=== PATIENT | male | born 1950 | race Caucasian/White ===

== ENCOUNTER 2021-03-04 05:35 | Day surgery (SDC) | payer MEDICARE, BC ==
[2021-02-25 11:46] LABS: PRE OP HEMOGLOBIN 13.8 g/dL (14.0-17.9)
[2021-02-25 11:48] LABS: MEAN CORPUSCULAR HGB CONC 33.2 g/dL (33.0-36.5); MEAN CORPUSCULAR VOLUME 90.4 FL (78-98); PRE OP HEMATOCRIT 41.5 % (42.0-52.0); PRE OP PLATELET COUNT 268 X10'3 (140-440); RED BLOOD COUNT 4.59 X10'6 (4.70-6.10); RED CELL DISTRIBUTION WIDTH 13.4 % (11.5-14.5)
[2021-02-25 11:52] LABS: CLARITY,URINE CLEAR (Clear); COLOR,URINE YELLOW (Yellow); GLUCOSE, URINE NEGATIVE (Neg); KETONES,URINE NEGATIVE (Neg); LEUKOCYTE ESTERASE ,URINE NEGATIVE (Neg); NITRITES, URINE NEGATIVE (Neg); OCCULT BLOOD,URINE NEGATIVE (Neg); PROTEIN,URINE NEGATIVE (Neg); UA COLLECTION TYPE CLN CATCH MIDSTREAM; UROBILINOGEN,URINE 0.2 E.U/dL (0.2-1.0)
[2021-02-25 12:12] LABS: ALBUMIN 4.1 G/DL (3.4-5.0); ALBUMIN/GLOBULIN RATIO 1.1 (1.1-1.5); ALKALINE PHOSPHATASE 52 IU/L (46-116); BLOOD UREA NITROGEN 19 MG/DL (7-18); BUN/CREATININE RATIO 21.3 (5.4-32.0); CALCIUM 9.5 MG/DL (8.5-10.1); CHLORIDE 102 MMOL/L (99-107); CREATININE 0.89 MG/DL (0.60-1.10); PRE OP ALT 39 U/L (30-65); PRE OP ANION GAP 4 (8-16); PRE OP AST 24 U/L (10-37); PRE OP BILIRUB, TOTAL 0.4 MG/DL (0.0-1.0); PRE OP GLUCOSE 101 MG/DL (70-104); PRE OP POTASSIUM 4.3 MMOL/L (3.4-5.1); PRE OP SODIUM 137 MMOL/L (135-145); TOTAL CARBON DIOXIDE 31.2 MMOL/L (24-32); TOTAL PROTEIN 7.8 G/DL (6.4-8.2); eGFR 85 ML/MIN
[2021-02-25 12:22] LABS: TOTAL CELLS COUNTED 100
[2021-02-25 12:23] LABS: PLATELET ESTIMATE NORMAL
[~2021-03-04] VITALS: Ht 188 cm; Wt 114.4 kg
[2021-03-04] VITALS (11 sets, daily range): BP systolic 101–120; BP diastolic 52–68
[~2021-03-04 05:35] MED LIST: ASPI-611 PO; CARV25TA3 PO; DOCUMENT DATE & TIME OF BETA-BLOCKER PO ONE; EZET10TA48 PO; GEMF600T89 PO; HYDR12.55 PO; LISI20TA28 PO; OMEG-133 PO; ROSU20TA31 PO; SPIR25TA5 PO; UBID50TA3 PO; ceFAZolin 2gm in dextrose, iso 50 ML IV ONE; famotidine 20mg tablet PO ONE; ringers solution, lacted 1,000 ML IV SCH
[2021-03-04] MEDS ORDERED: BUPIVAcaine/PF 2.5 mg/ml (0.25%) 30ml vial ONE (06:49)
[2021-03-04] MEDS ORDERED: bacitracin 15gm ointment TP ONE (06:49)
[2021-03-04] MEDS ORDERED: scopolamine 1mg/72 hr patch TD ONE (07:06)
[2021-03-04] MEDS ORDERED: fentaNYL/PF 50MCG/1 ML 2ML syringe ONE (07:09)
[2021-03-04] MEDS ORDERED: midazolam 1 mg/ML 2ml injection ONE (07:10)
[2021-03-04] MEDS ORDERED: LIDOcaine 2% (20mg/ml) 5ml vial ONE (07:25)
[2021-03-04] MEDS ORDERED: propofol inj 20 ML IV ONE (07:25)
[2021-03-04] MEDS ORDERED: ondansetron/PF 4mg/2ml inj ONE (07:25)
[2021-03-04] MEDS ORDERED: dexamethasone sod phosphate 4mg/ml inj. ONE (07:25)
[2021-03-04] MEDS ORDERED: labetalol 20mg/4ml (5mg/ml) syringe IV PRN (07:30)
[2021-03-04] MEDS ORDERED: morphine 2 MG/ML inj. syringe IV PRN (07:30)
[2021-03-04] MEDS ORDERED: meperidine/PF 25mg/ml syringe IV PRN ×3 (07:30)
[2021-03-04] MEDS ORDERED: ringers solution, lacted 1,000 ML IV SCH (07:30)
[2021-03-04] MEDS ORDERED: acetaminophen 1,000mg/100ml IV 100 ML IV PRN (07:30)
[2021-03-04] MEDS ORDERED: hydrALAZINE 20mg/ml inj. IV PRN (07:30)
[2021-03-04] MEDS ORDERED: ondansetron/PF 4mg/2ml inj IV PRN (07:30)
[2021-03-04] MEDS ORDERED: morphine 4 MG/ML inj SYRINge IV PRN (07:30)
[2021-03-04] MEDS ORDERED: proCHLORperazine 10 MG/2 ml inj IV PRN (07:30)
--- NOTE | 2021-03-04 08:27 | NUR ---
Received from OR via , accompanied by Anesthesiologist Dr. Minor and report given by Anesthesiolgist and OR nurse. Pt arrived drowsy on 10L 02 via mask. Pt right foot is wrapped and boot on. Dressing C/D/I. Capillary is 2 sec. 20G IV in left arm. VVS. Addendum: 03/04/21 at 0846 by Asia Kaur RN Amended: Links added.
--- NOTE | 2021-03-04 09:57 | NUR ---
ALL DISCHARGE CRITERIA HAS BEEN MET. VSS, DENIES PAIN OR NAUSEA. ABLE TO SAFELY AMBULATE AND TRANSFER SELF. IV TAKEN OUT WITHOUT COMPLICATIONS. ALL DISCHARGE INSTRUCTIONS COVERED WITH PATIENT AND ALL QUESTIONS ANSWERED, COPY GIVEN TO PATIENT. SCOPOLAMINE PATCH REMOVAL INSTRUCTIONS GIVEN TO PT ALONG WITH PRINT OUT. INSTRUCTED PT PER DR. VELIZ PT IS TO KEEP BOOT ON AT ALL TIMES EXCEPT WHEN LEG IS ELEVATED AND PT IS AWAKE, PT MUST SLEEP WITH BOOT AND WEAR IT WHILE WALKING. LIMITED WEIGHT BEARING ON RIGHT LEG. ICE PLACED BEHIND RIGHT KNEE FOR TRANSPORT HOME. PATIENT TAKEN OUT VIA WHEELCHAIR TO PERSONAL VEHICLE WITHOUT INCIDENT. Addendum: 03/04/21 at 1009 by Asia Kaur RN Amended: Links added.
== END 2021-03-04 09:57 | disposition home or self-care (01) ==
LOC: PAS 05:35
PROVIDERS: ATTEND Podiatrist Foot & Ankle Surgery
DX: M20.21 Hallux rigidus, right foot (principal); M19.071 Primary osteoarthritis, right ankle and foot; I25.10 Atherosclerotic heart disease of native coronary artery without angina pectoris; I10 Essential (primary) hypertension; Z20.822 Contact with and (suspected) exposure to COVID-19; Z79.82 Long term (current) use of aspirin; Z79.899 Other long term (current) drug therapy; Z98.890 Other specified postprocedural states; Z96.653 Presence of artificial knee joint, bilateral; Z95.1 Presence of aortocoronary bypass graft
CPT/HCPCS: 28750; 36415; 73620; 76000; 80053; 81003; 82948; 85025; A6223; C1713; J1100; J2001; J2250; J2405; J2704; J3010; J3490; U0003; U0005; Z7506; Z7508; Z7512; 85007; A4215; A4618; A6449; A7000; J7120

== ENCOUNTER 2021-05-29 09:27 | Emergency (ER) | payer MEDICARE, BC ==
[~2021-05-29] VITALS: Ht 188 cm; Wt 118.2 kg
[~2021-05-29 09:27] MED LIST changes: -DOCUMENT DATE & TIME OF BETA-BLOCKER PO ONE; -ceFAZolin 2gm in dextrose, iso 50 ML IV ONE; -famotidine 20mg tablet PO ONE; -ringers solution, lacted 1,000 ML IV SCH
[2021-05-29 09:30] VITALS: BP 150/78
[2021-05-29] MEDS ORDERED: mupirocin 2% ointment 22GM TP ONE (09:45)
[2021-05-29] MEDS ORDERED: TETanus/Pertussis (Acell)/Diphther VAC/PF (Tdap-Adult) 0.5ml syringe IMVAC ONE (09:45)
[2021-05-29] MEDS ORDERED: CefTRIAXone 1000mg IM Kit (w/lidocaine diluent) IM ONE (09:45)
[2021-05-29] MEDS ORDERED: AMOX-580 PO (09:48)
== END 2021-05-29 10:01 | disposition home or self-care (01) ==
LOC: ER 09:27
DX: S61.402A Unspecified open wound of left hand, initial encounter (principal); L03.114 Cellulitis of left upper limb; I11.0 Hypertensive heart disease with heart failure; I50.9 Heart failure, unspecified; Z79.82 Long term (current) use of aspirin; Z79.899 Other long term (current) drug therapy; Y93.89 Activity, other specified; Y92.89 Other specified places as the place of occurrence of the external cause; Y99.8 Other external cause status
CPT/HCPCS: 90471; 90715; 99283

== ENCOUNTER 2021-12-21 05:51 | Day surgery (SDC) | payer MEDICARE, BC ==
[2021-12-20 11:36] LABS: BASOPHILS # (AUTO) 0.1 X10'3 (0-0.2); BASOPHILS % (AUTO) 1.4 % (0-1); EOSINOPHILS # (AUTO) 0.4 X10'3 (0-0.9); EOSINOPHILS % (AUTO) 6.2 % (0-6); HEMATOCRIT 40.2 % (42.0-52.0); HEMOGLOBIN 13.3 g/dl (14.0-17.9); LYMPHOCYTES # (AUTO) 1.8 X10'3 (1.1-4.8); LYMPHOCYTES % (AUTO) 25.1 % (21-51); MEAN CORPUSCULAR HEMOGLOBIN 29.2 PG (27.0-31.0); MEAN CORPUSCULAR VOLUME 88.5 FL (78-98); MEAN PLATELET VOLUME 7.3 FL (7.4-10.4); MONOCYTES # (AUTO) 0.7 X10'3 (0-0.9); MONOCYTES % (AUTO) 10.3 % (2-12); PLATELET COUNT 246 X10'3 (140-440); RED BLOOD COUNT 4.54 X10'6 (4.70-6.10); RED CELL DISTRIBUTION WIDTH 13.8 % (11.5-14.5)
[2021-12-20 11:50] LABS: APTT 23 SECONDS (22-32)
[2021-12-20 11:59] LABS: ALBUMIN 4.3 G/DL (3.4-5.0); ANION GAP 10 (8-16); BLOOD UREA NITROGEN 27 MG/DL (7-18); CALCIUM 9.3 MG/DL (8.5-10.1); CHLORIDE 104 MMOL/L (99-107); CREATININE 1.04 MG/DL (0.60-1.10); GLUCOSE 98 MG/DL (70-104); POTASSIUM 4.4 MMOL/L (3.5-5.1); SODIUM 140 MMOL/L (135-145); TOTAL CARBON DIOXIDE 25.8 MMOL/L (24-32); eGFR 71 ML/MIN
[~2021-12-21] VITALS: Ht 188 cm; Wt 118.3 kg
[2021-12-21] VITALS (11 sets, daily range): BP systolic 111–145; BP diastolic 47–73
[2021-12-21] MEDS ORDERED: diphenhydrAMINE 25mg capsule PO PRN (06:20)
[2021-12-21] MEDS ORDERED: LORazepam 0.5 MG tablet PO PRN (06:20)
[2021-12-21] MEDS ORDERED: normal saline 1,000 ML IV SCH (06:20)
[2021-12-21] MEDS ORDERED: OMEG1CAP2 PO (06:31)
[2021-12-21] MEDS ORDERED: verapamil 2.5 mg/ml inj IV ONE (07:17)
[2021-12-21] MEDS ORDERED: nitroGLYCERIN-Tridil 50MG/D5W 250 ML IV ONE (07:17)
[2021-12-21] MEDS ORDERED: iohexol 350MG/ML 100ml bottle IV ONE ×4 (07:17→09:45)
[2021-12-21] MEDS ORDERED: midazolam 1 mg/ML 2ml injection ONE (07:17)
[2021-12-21] MEDS ORDERED: fentaNYL/PF 50MCG/1 ML 2ML syringe ONE (07:17)
[2021-12-21] MEDS ORDERED: heparin 1,000unit/ml 10ml vial 10 ML ONE (07:17)
[2021-12-21] MEDS ORDERED: LIDOcaine 1%/PF 5ML 10 MG/ML VIAL ONE (07:17)
[2021-12-21] MEDS ORDERED: heparin 25,000 UNIT/250ml bag 250 ML IV ONE (09:00)
[2021-12-21] MEDS ORDERED: heparin 1,000 UNITS/NS 500ml 500 ML ONE (09:45)
--- NOTE | 2021-12-21 10:30 | NUR ---
Pt back from wastewater analyst lab analyst. Fluids infusing as ordered. Heparin running, administered in wastewater analyst lab analyst. Pt A/Ox4. VS stable as charted. Vasc band in place, no s/s of bleeding or infection. Pt denies cp, denies sob.
[2021-12-21] MEDS ORDERED: normal saline 1000ml 1,000 ML IV SCH (10:55)
--- NOTE | 2021-12-21 11:12 | NUR ---
Pt complaint of non-radiating "chest pressure"/10. Denies pain, denies sob. Pt is not diaphoretic. VS stable as charted. Ordered EKG.
--- NOTE | 2021-12-21 12:04 | NUR ---
Heparin stopped per order.
--- NOTE | 2021-12-21 13:28 | NUR ---
Jina SHEARER at bedside.
--- NOTE | 2021-12-21 14:32 | NUR ---
Pt ambulated to restroom, voided. Denies cp, denies sob. Site stable.
--- NOTE | 2021-12-21 14:43 | NUR ---
Brought patient apple sauce and juice as requested.
--- NOTE | 2021-12-21 15:28 | NUR ---
arrived and is at bedside. Pt sitting up in bed. vs stable as charted.
== END 2021-12-21 15:55 | disposition home or self-care (01) ==
LOC: SSTAY O 05:51
PROVIDERS: ATTEND Internal Medicine Cardiovascular Disease
DX: R94.39 Abnormal result of other cardiovascular function study (principal); I25.810 Atherosclerosis of coronary artery bypass graft(s) without angina pectoris; E78.5 Hyperlipidemia, unspecified; I11.0 Hypertensive heart disease with heart failure; I50.22 Chronic systolic (congestive) heart failure; Z79.82 Long term (current) use of aspirin; Z79.899 Other long term (current) drug therapy; I42.9 Cardiomyopathy, unspecified; G47.33 Obstructive sleep apnea (adult) (pediatric); E66.9 Obesity, unspecified; Z68.32 Body mass index [BMI] 32.0-32.9, adult; Z98.890 Other specified postprocedural states
CPT/HCPCS: 36415; 76937; 80048; 85025; 85610; 85730; 92920; 93005; 93459; 99152; 99153; C1725; C1751; C1769; C1894; J1644; J2250; J3010; J3490; J7030; Q0163; Q9967; 93458; A4620; A5120; A6258; A6402

== ENCOUNTER 2022-01-09 06:54 | Day surgery (SDC) | payer MEDICARE, BC ==
[2022-01-06 12:45] LABS: BASOPHILS # (AUTO) 0.1 X10'3 (0-0.2); BASOPHILS % (AUTO) 1.4 % (0-1); EOSINOPHILS # (AUTO) 0.4 X10'3 (0-0.9); EOSINOPHILS % (AUTO) 5.8 % (0-6); HEMATOCRIT 38.3 % (42.0-52.0); HEMOGLOBIN 12.8 g/dl (14.0-17.9); LYMPHOCYTES # (AUTO) 1.6 X10'3 (1.1-4.8); LYMPHOCYTES % (AUTO) 22.3 % (21-51); MEAN CORPUSCULAR HEMOGLOBIN 29.6 PG (27.0-31.0); MEAN CORPUSCULAR HGB CONC 33.5 g/dL (33.0-36.5); MEAN CORPUSCULAR VOLUME 88.6 FL (78-98); MEAN PLATELET VOLUME 7.1 FL (7.4-10.4); MONOCYTES # (AUTO) 0.6 X10'3 (0-0.9); MONOCYTES % (AUTO) 8.7 % (2-12); NEUTROPHILS # (AUTO) 4.4 X10'3 (1.8-7.7); NEUTROPHILS % (AUTO) 61.8 % (42-75); PLATELET COUNT 291 X10'3 (140-440); RED BLOOD COUNT 4.32 X10'6 (4.70-6.10); RED CELL DISTRIBUTION WIDTH 14.5 % (11.5-14.5); WHITE BLOOD COUNT 7.1 X10'3 (4.5-11.0)
[2022-01-06 12:55] LABS: ALBUMIN 4.2 G/DL (3.4-5.0); ANION GAP 15 (8-16); BLOOD UREA NITROGEN 27 MG/DL (7-18); CALCIUM 9.4 MG/DL (8.5-10.1); CHLORIDE 106 MMOL/L (99-107); CREATININE 1.35 MG/DL (0.60-1.10); GLUCOSE 143 MG/DL (70-104); POTASSIUM 3.8 MMOL/L (3.5-5.1); SODIUM 144 MMOL/L (135-145); TOTAL CARBON DIOXIDE 23.5 MMOL/L (24-32); eGFR 52 ML/MIN
[2022-01-06 12:59] LABS: APTT 26 SECONDS (22-32)
[2022-01-09] VITALS (11 sets, daily range): BP systolic 115–138; BP diastolic 51–65
[~2022-01-09] VITALS: Ht 188 cm; Wt 118.8 kg
[~2022-01-09 06:54] MED LIST changes: -OMEG-133 PO; +OMEG1CAP2 PO
[2022-01-09] MEDS ORDERED: normal saline 1,000 ML IV SCH (07:20)
[2022-01-09] MEDS ORDERED: diphenhydrAMINE 25mg capsule PO PRN (07:20)
[2022-01-09] MEDS ORDERED: acetylcysteine 200 MG/ml 4ml vial PO PRN (07:20)
[2022-01-09] MEDS ORDERED: LORazepam 0.5 MG tablet PO PRN (07:20)
[2022-01-09] MEDS ORDERED: acetylcysteine 200 MG/ml 4ml vial PO SCH (07:20)
[2022-01-09] MEDS ORDERED: ROSU10TA28 PO (07:22)
[2022-01-09] MEDS ORDERED: ISOS60TA71 PO (07:22)
[2022-01-09] MEDS ORDERED: IOHEXOL 350 MG/ML INFUS..BTL 125ML IV ONE (09:45)
[2022-01-09] MEDS ORDERED: LIDOcaine 1%/PF 5ML 10 MG/ML VIAL ONE (09:45)
[2022-01-09] MEDS ORDERED: midazolam 1 mg/ML 2ml injection ONE (09:45)
[2022-01-09] MEDS ORDERED: verapamil 2.5 mg/ml inj IV ONE (09:45)
[2022-01-09] MEDS ORDERED: heparin 1,000unit/ml 10ml vial 10 ML ONE (09:45)
[2022-01-09] MEDS ORDERED: fentaNYL/PF 50MCG/1 ML 2ML syringe ONE (09:45)
[2022-01-09] MEDS ORDERED: nitroGLYCERIN-Tridil 50MG/D5W 250 ML IV ONE (09:46)
[2022-01-09] MEDS ORDERED: HEPARIN SOD,PORK IN 0.45% NACL 250 ML IV ONE (11:03)
[2022-01-09] MEDS ORDERED: iohexol 350MG/ML 100ml bottle IV ONE (11:32)
[2022-01-09] MEDS ORDERED: HYDROcodone/acetaminophen 10/325mg tab PO PRN ×2 (16:30)
[2022-01-09] MEDS ORDERED: cyclobenzaprine 10mg tablet PO PRN (16:30)
[2022-01-09] MEDS ORDERED: magnesium hydroxide 30ml (MOM) UD suspension PO PRN (16:30)
[2022-01-09] MEDS ORDERED: acetaminophen 325mg tablet PO PRN ×3 (16:30)
[2022-01-09] MEDS ORDERED: OXAZEpam 15mg capsule PO PRN (16:30)
== END 2022-01-09 17:15 | disposition home or self-care (01) ==
LOC: SSTAY O 06:54
PROVIDERS: ATTEND Internal Medicine Cardiovascular Disease
DX: I25.10 Atherosclerotic heart disease of native coronary artery without angina pectoris (principal); Z79.01 Long term (current) use of anticoagulants; I10 Essential (primary) hypertension; Z95.1 Presence of aortocoronary bypass graft; Z79.899 Other long term (current) drug therapy; Z98.890 Other specified postprocedural states
CPT/HCPCS: 36415; 76937; 80048; 85025; 85610; 85730; 92920; 93005; 99152; 99153; C1751; C1760; C1769; J1644; J2250; J3010; J3490; J7030; Q0163; Q9967; A4620; A6258; C1894; C9607

== ENCOUNTER 2022-01-31 14:37 | Day surgery (SDC) | payer MEDICARE, BC ==
[~2022-01-31] VITALS: Ht 188 cm; Wt 119.9 kg
[~2022-01-31 14:37] MED LIST changes: +ISOS60TA71 PO; +ROSU10TA28 PO; -ROSU20TA31 PO
[2022-01-31 15:36] VITALS: BP 157/98
[2022-01-31] MEDS ORDERED: ceFAZolin inj. 2,000 MG in dextrose 5%-water 100 ML IV ONE (15:44)
[2022-01-31] MEDS ORDERED: CARV-49 PO (15:54)
[2022-01-31 16:08] LABS: BASOPHILS # (AUTO) 0.1 X10'3 (0-0.2); BASOPHILS % (AUTO) 1.3 % (0-1); EOSINOPHILS # (AUTO) 0.5 X10'3 (0-0.9); EOSINOPHILS % (AUTO) 6.1 % (0-6); HEMATOCRIT 38.3 % (42.0-52.0); LYMPHOCYTES # (AUTO) 1.9 X10'3 (1.1-4.8); LYMPHOCYTES % (AUTO) 24.2 % (21-51); MEAN CORPUSCULAR HEMOGLOBIN 30.1 PG (27.0-31.0); MEAN CORPUSCULAR VOLUME 88.6 FL (78-98); MEAN PLATELET VOLUME 7.6 FL (7.4-10.4); MONOCYTES # (AUTO) 0.8 X10'3 (0-0.9); MONOCYTES % (AUTO) 9.9 % (2-12); NEUTROPHILS # (AUTO) 4.7 X10'3 (1.8-7.7); NEUTROPHILS % (AUTO) 58.5 % (42-75); PLATELET COUNT 244 X10'3 (140-440); RED BLOOD COUNT 4.33 X10'6 (4.70-6.10); RED CELL DISTRIBUTION WIDTH 14.2 % (11.5-14.5); WHITE BLOOD COUNT 7.9 X10'3 (4.5-11.0)
[2022-01-31] MEDS ORDERED: ceFAZolin 1000mg inj ONE ×2 (16:14→16:15)
[2022-01-31 16:17] LABS: ANION GAP 11 (8-16); BLOOD UREA NITROGEN 28 MG/DL (7-18); BUN/CREATININE RATIO 26.9 (5.4-32.0); CALCIUM 9.3 MG/DL (8.5-10.1); CHLORIDE 102 MMOL/L (99-107); CREATININE 1.04 MG/DL (0.60-1.10); GLUCOSE 97 MG/DL (70-104); SODIUM 140 MMOL/L (135-145); TOTAL CARBON DIOXIDE 26.7 MMOL/L (24-32); eGFR 71 ML/MIN
[2022-01-31 16:19] LABS: APTT 25 SECONDS (22-32)
[2022-01-31] MEDS ORDERED: fentaNYL/PF 50MCG/1 ML 2ML syringe ONE (17:47)
[2022-01-31] MEDS ORDERED: midazolam 1 mg/ML 2ml injection ONE ×2 (17:47→18:52)
[2022-01-31] MEDS ORDERED: LIDOcaine 1% W/epiNEPHrine 1:100,000 20ml vial ONE (18:11)
[2022-01-31 19:40] VITALS: BP 155/68
[2022-01-31] MEDS ORDERED: HYDROcodone/acetaminophen 5mg/325mg tablet PO PRN (19:45)
[2022-01-31] MEDS ORDERED: HYDROcodone/acetaminophen 10/325mg tab PO PRN (19:45)
[2022-01-31] MEDS ORDERED: normal saline 1000ml 1,000 ML IV SCH (19:45)
[2022-01-31] MEDS ORDERED: carVEDilol 12.5mg tablet PO SCH (20:00)
[2022-01-31] MEDS ORDERED: gemfibrozil 600mg tablet PO SCH (20:00)
[2022-01-31] MEDS ORDERED: CARV25TA2 PO (20:18)
[2022-01-31] MEDS ORDERED: vancomycin/NS 1 GM in NS 250 ML IV ONE (20:30)
[2022-01-31] MEDS ORDERED: isosorbide mononitrate 30mg tab.SR.24H PO SCH (21:00)
[2022-01-31] MEDS ORDERED: atorvastatin 20mg tablet PO SCH (21:00)
[2022-01-31 21:07] LABS: CREATININE 1.14 MG/DL (0.60-1.10); POTASSIUM 3.9 MMOL/L (3.5-5.1); eGFR 64 ML/MIN
[2022-02-01] MEDS ORDERED: OMEGA-3/DHA/EPA/FISH OIL 1 EACH CAPSULE.DR PO SCH (08:00)
[2022-02-01] MEDS ORDERED: HYDROchlorothiazide 12.5mg capsule PO SCH (08:00)
[2022-02-01] MEDS ORDERED: aspirin 81mg, enteric-coated 1 TAB TABLET.DR PO SCH (08:00)
[2022-02-01] MEDS ORDERED: ezetimibe 10mg tablet PO SCH (08:00)
[2022-02-01] MEDS ORDERED: spironolactone 25 MG tablet PO SCH (08:00)
[2022-02-01] MEDS ORDERED: lisinopril 20mg tablet PO SCH (08:00)
[2022-02-01] MEDS ORDERED: UBIDECARENONE 50 MG PO SCH (08:00)
== END 2022-01-31 23:20 | disposition home or self-care (01) ==
LOC: SSTAY O 14:37 → UNDOADMOB 19:45 → PCU 3S 19:45 → SSTAY O 23:20 → UNDODISOB 23:20
PROVIDERS: ATTEND Internal Medicine Cardiovascular Disease
DX: I44.2 Atrioventricular block, complete (principal); Z79.01 Long term (current) use of anticoagulants; Z79.899 Other long term (current) drug therapy; I25.10 Atherosclerotic heart disease of native coronary artery without angina pectoris; I50.22 Chronic systolic (congestive) heart failure; E78.5 Hyperlipidemia, unspecified; I42.0 Dilated cardiomyopathy; I42.9 Cardiomyopathy, unspecified; G47.30 Sleep apnea, unspecified; I50.9 Heart failure, unspecified; I11.0 Hypertensive heart disease with heart failure; G47.33 Obstructive sleep apnea (adult) (pediatric); E66.9 Obesity, unspecified; Z98.890 Other specified postprocedural states; Z95.1 Presence of aortocoronary bypass graft; Z79.82 Long term (current) use of aspirin
CPT/HCPCS: 33208; 36415; 71045; 80048; 82565; 84132; 85025; 85610; 85730; 93005; 99152; 99153; C1785; C1894; J0690; J2250; J3010; J3370; J3490; J7030; A4565; A4620; A6258; A6449; G0378

== ENCOUNTER 2022-10-09 09:04 | Emergency (ER) | payer BC, MEDICARE ==
[~2022-10-09] VITALS: Ht 190.5 cm; Wt 102.0 kg
[~2022-10-09 09:04] MED LIST changes: +CARV25TA2 PO; -CARV25TA3 PO; +FURO-150 PO; +RIVA15TA PO
[2022-10-09 09:36] LABS: ALANINE AMINOTRANSFERASE 36 U/L (12-78); ALBUMIN 4.1 G/DL (3.4-5.0); ALBUMIN/GLOBULIN RATIO 1.2 (1.1-1.5); ALKALINE PHOSPHATASE 55 IU/L (46-116); ANION GAP 2 (8-16); ASPARTATE AMINO TRANSFERASE 21 U/L (10-37); BILIRUBIN,TOTAL 0.5 MG/DL (0.1-1.0); BLOOD UREA NITROGEN 27 MG/DL (7-18); BUN/CREATININE RATIO 20.9 (10.0-20.0); CALCIUM 9.6 MG/DL (8.5-10.1); CHLORIDE 101 MMOL/L (99-107); CREATININE 1.29 MG/DL (0.60-1.10); GLUCOSE 136 MG/DL (70-104); POTASSIUM 4.4 MMOL/L (3.5-5.1); SODIUM 138 MMOL/L (135-145); TOTAL CARBON DIOXIDE 34.6 MMOL/L (24-32); TOTAL PROTEIN 7.6 G/DL (6.4-8.2); eGFR 55 ML/MIN
[2022-10-09 09:43] LABS: BASOPHILS # (AUTO) 0.1 X10'3 (0-0.2); EOSINOPHILS # (AUTO) 0.4 X10'3 (0-0.9); EOSINOPHILS % (AUTO) 5.4 % (0-6); HEMATOCRIT 40.4 % (42.0-52.0); HEMOGLOBIN 13.3 g/dl (14.0-17.9); LYMPHOCYTES # (AUTO) 1.2 X10'3 (1.1-4.8); LYMPHOCYTES % (AUTO) 18.3 % (21-51); MEAN CORPUSCULAR HEMOGLOBIN 30.4 PG (27.0-31.0); MEAN CORPUSCULAR HGB CONC 32.8 g/dL (33.0-36.5); MEAN CORPUSCULAR VOLUME 92.6 FL (78-98); MEAN PLATELET VOLUME 7.7 FL (7.4-10.4); MONOCYTES # (AUTO) 0.7 X10'3 (0-0.9); MONOCYTES % (AUTO) 9.7 % (2-12); NEUTROPHILS # (AUTO) 4.4 X10'3 (1.8-7.7); NEUTROPHILS % (AUTO) 64.6 % (42-75); PLATELET COUNT 295 X10'3 (140-440); RED BLOOD COUNT 4.36 X10'6 (4.70-6.10); RED CELL DISTRIBUTION WIDTH 13.9 % (11.5-14.5); WHITE BLOOD COUNT 6.8 X10'3 (4.5-11.0)
[2022-10-09 09:44] LABS: MAGNESIUM 2.2 MG/DL (1.5-2.4)
[2022-10-09 12:23] VITALS: BP 109/71
== END 2022-10-09 12:25 | disposition home or self-care (01) ==
LOC: ER 09:04
DX: I11.0 Hypertensive heart disease with heart failure (principal); E78.00 Pure hypercholesterolemia, unspecified; Z79.899 Other long term (current) drug therapy
CPT/HCPCS: 36415; 71045; 80053; 83735; 83880; 84484; 85025; 93005; 99285

== ENCOUNTER 2023-03-09 14:06 | Inpatient (IN) | payer MEDICARE, OTHER ==
[~2023-03-09] VITALS: Ht 190.5 cm; Wt 90.0 kg
[2023-03-09 14:29] LABS: BASOPHILS # (AUTO) 0.1 X10'3 (0-0.2); BASOPHILS % (AUTO) 1.3 % (0-1); EOSINOPHILS # (AUTO) 0.2 X10'3 (0-0.9); EOSINOPHILS % (AUTO) 1.5 % (0-6); HEMATOCRIT 41.1 % (42.0-52.0); HEMOGLOBIN 13.7 g/dl (14.0-17.9); LYMPHOCYTES # (AUTO) 1.2 X10'3 (1.1-4.8); LYMPHOCYTES % (AUTO) 11.5 % (21-51); MEAN CORPUSCULAR HEMOGLOBIN 29.1 PG (27.0-31.0); MEAN CORPUSCULAR HGB CONC 33.4 g/dL (33.0-36.5); MEAN CORPUSCULAR VOLUME 87.2 FL (78-98); MEAN PLATELET VOLUME 7.2 FL (7.4-10.4); MONOCYTES # (AUTO) 1.3 X10'3 (0-0.9); MONOCYTES % (AUTO) 11.6 % (2-12); NEUTROPHILS % (AUTO) 74.1 % (42-75); PLATELET COUNT 324 X10'3 (140-440); RED BLOOD COUNT 4.71 X10'6 (4.70-6.10); RED CELL DISTRIBUTION WIDTH 15.6 % (11.5-14.5); WHITE BLOOD COUNT 10.9 X10'3 (4.5-11.0)
[2023-03-09 14:57] LABS: ALANINE AMINOTRANSFERASE 37 U/L (12-78); ALBUMIN 3.9 G/DL (3.4-5.0); ALKALINE PHOSPHATASE 55 IU/L (46-116); ANION GAP 11 (8-16); ASPARTATE AMINO TRANSFERASE 28 U/L (10-37); BILIRUBIN,TOTAL 0.9 MG/DL (0.1-1.0); BLOOD UREA NITROGEN 50 MG/DL (7-18); BUN/CREATININE RATIO 31.8 (10.0-20.0); CALCIUM 9.4 MG/DL (8.5-10.1); CHLORIDE 90 MMOL/L (99-107); CREATININE 1.57 MG/DL (0.60-1.10); GLUCOSE 147 MG/DL (70-104); SODIUM 132 MMOL/L (135-145); TOTAL CARBON DIOXIDE 30.7 MMOL/L (24-32); eCRCL 52 ML/MIN; eGFR 44 ML/MIN
[2023-03-09 15:39] LABS: POTASSIUM 2.8 MMOL/L (3.5-5.1)
--- NOTE | 2023-03-09 16:09 | NUR ---
pt moved to ER bed 3, assumed care of patient.
[2023-03-09] MEDS ORDERED: ISOS60TA71 PO (16:19)
[2023-03-09] MEDS ORDERED: ZAR2.5T PO (16:19)
[2023-03-09] MEDS ORDERED: DAPA10TA PO (16:19)
[2023-03-09] MEDS ORDERED: CLOP75TA34 PO (16:19)
[2023-03-09] MEDS ORDERED: ROSU20TA73 PO (16:19)
[2023-03-09] MEDS ORDERED: FURO20TA4 PO (16:19)
[2023-03-09] MEDS ORDERED: SPIR25TA5 PO (16:20)
[2023-03-09] MEDS ORDERED: GEMF600T89 PO (16:20)
[2023-03-09] MEDS ORDERED: EZET10TA7 PO (16:21)
[2023-03-09] MEDS ORDERED: CARV25TA2 PO (16:21)
[2023-03-09] MEDS ORDERED: DOBUTamine-DoBUTrex 500mg/D5W 250 ML IV ONE (16:25)
[2023-03-09] MEDS ORDERED: magnesium 2GM in 50ml NS 50 ML IV ONE (16:30)
[2023-03-09] MEDS ORDERED: furosemide 10 MG/1 ML 10ml inj IV ONE (16:30)
[2023-03-09] MEDS ORDERED: HYDR12.55 PO (16:30)
[2023-03-09] MEDS ORDERED: POTASSIUM BICARB 20meq eff tab 20 MEQ TABLET.EFF PO ONE (16:30)
[2023-03-09] MEDS ORDERED: potassium Cl 20 mEq SR tablet PO ONE (16:30)
[2023-03-09] MEDS ORDERED: spironolactone 25 MG tablet PO ONE (16:30)
[2023-03-09] MEDS ORDERED: MAGN400T39 PO (16:34)
[2023-03-09] MEDS ORDERED: OMEG-167 PO (16:34)
[2023-03-09] MEDS ORDERED: ASPI-611 PO (16:34)
[2023-03-09] MEDS ORDERED: ASCO-336 PO (16:34)
[2023-03-09] MEDS ORDERED: UBID100C16 PO (16:34)
[2023-03-09] MEDS ORDERED: CHOL100046 PO (16:34)
--- NOTE | 2023-03-09 16:35 | NUR ---
Clarified dobutamine drip with Dr. Cisneros. states dobutamine drip to be initiated at 5mcg/min and not titrated.
[2023-03-09] MEDS ORDERED: acetaminophen 325mg tablet PO PRN (17:10)
[2023-03-09] MEDS ORDERED: potassium Cl 40MEQ/1/2NS 520ml 520 ML IV PRN (17:10)
[2023-03-09] MEDS ORDERED: PERFLUTREN PROTEIN-A MICROSPHR (Optison) 0.22 MG/ML 3ML VIAL IV ONE (17:10)
[2023-03-09] MEDS ORDERED: mag hydrox/Alum hydrox/simeth 30ml oral suspension PO PRN (17:10)
[2023-03-09] MEDS ORDERED: ondansetron/PF 4mg/2ml inj IV PRN (17:10)
[2023-03-09] MEDS ORDERED: magnesium 4gm in 100ml NS 100 ML IV PRN (17:10)
[2023-03-09] MEDS ORDERED: potassium Cl 20 mEq SR tablet PO PRN (17:10)
[2023-03-09] MEDS ORDERED: magnesium 2GM in 50ml NS 50 ML IV PRN (17:10)
--- NOTE | 2023-03-09 17:16 | NUR ---
Dr. donaldson called, troponin 651 result reported
[2023-03-09] MEDS ORDERED: heparin 10,000 units/1 ML INJ IV ONE (17:35)
[2023-03-09 17:50] VITALS: PULSE 81; RESP 18; O2SAT 96
[2023-03-09 17:51] LABS: APTT 25 SECONDS (22-32)
[2023-03-09] MEDS: heparin 25,000 UNIT/250ml bag 250 ML IV PRN (18:04)
--- NOTE | 2023-03-09 18:14 | NUR ---
Leonard RN given report. Pt with heparin gtt and dobutamine gtt infusing.
[2023-03-09] MEDS: docusate sod 100mg capsule PO SCH (20:00)
[2023-03-09] MEDS: K and/or MAG REPLACEMENT MC SCH (20:00)
[2023-03-09] MEDS: gemfibrozil 600mg tablet PO SCH (20:20)
[2023-03-09] MEDS: potassium Cl 20 mEq SR tablet PO PRN (20:21)
[2023-03-09] MEDS: atorvastatin 20mg tablet PO SCH (20:22)
[2023-03-09] MEDS: carVEDilol 12.5mg tablet PO SCH (20:22)
[2023-03-09 20:36] VITALS: PULSE 79; RESP 18; O2SAT 97
[2023-03-09 21:00] VITALS: BP 109/69; PULSE 83; RESP 12; TEMP 97.7; O2SAT 96; O2SAT 98
[2023-03-09] MEDS: furosemide 40mg/4ml inj IV SCH (21:33)
[2023-03-09 23:00] VITALS: BP 108/72; PULSE 81; RESP 15
[2023-03-10] VITALS (23 sets, daily range): BP systolic 82–109; BP diastolic 52–73; PULSE 68–81; RESP 12–16; TEMP 97.2–98.2; O2SAT 92–100
[2023-03-10 00:31] LABS: APTT 36 SECONDS (22-32)
[2023-03-10 00:41] LABS: ALBUMIN 3.9 G/DL (3.4-5.0); ANION GAP 9 (8-16); BLOOD UREA NITROGEN 56 MG/DL (7-18); BUN/CREATININE RATIO 39.7 (10.0-20.0); CHLORIDE 89 MMOL/L (99-107); CREATININE 1.41 MG/DL (0.60-1.10); GLUCOSE 129 MG/DL (70-104); PRO BRAIN NATRIURETIC PEPTIDE 4492 PG/ML (0-125); SODIUM 134 MMOL/L (135-145); TOTAL CARBON DIOXIDE 35.9 MMOL/L (24-32); eCRCL 57 ML/MIN; eGFR 50 ML/MIN
[2023-03-10 00:47] LABS: POTASSIUM 2.7 MMOL/L (3.5-5.1)
[2023-03-10] MEDS: heparin 10,000 units/1 ML INJ IV PRN ×2 (00:54→22:29)
[2023-03-10] MEDS: potassium Cl 20 mEq SR tablet PO PRN ×5 (00:59→16:48)
--- NOTE | 2023-03-10 06:32 | NUR ---
Patient in room PCU 3010. I have received report from Geoff and had the opportunity to ask questions and assume patient care. Addendum: 03/10/23 at 0634 by Colby Wilson RN Amended: Links added.
[2023-03-10] MEDS: metolazone 2.5mg tablet PO SCH (07:12)
[2023-03-10] MEDS: sacubitril/valsartan 24mg-26mg tablet PO SCH ×2 (07:12→20:00)
[2023-03-10] MEDS: spironolactone 25 MG tablet PO SCH (07:13)
[2023-03-10] MEDS: isosorbide mononitrate 30mg tab.SR.24H PO SCH (07:14)
[2023-03-10] MEDS: furosemide 40mg/4ml inj IV SCH ×2 (07:14→20:00)
[2023-03-10] MEDS: gemfibrozil 600mg tablet PO SCH ×2 (07:15→20:35)
[2023-03-10] MEDS: DAPAGLIFLOZIN 10MG TABLET PO SCH (07:15)
[2023-03-10] MEDS: docusate sod 100mg capsule PO SCH ×2 (07:15→20:00)
[2023-03-10] MEDS: OMEGA-3/DHA/EPA/FISH OIL 1 EACH CAPSULE.DR PO SCH (07:15)
[2023-03-10] MEDS: ascorbic acid 500mg tablet PO SCH (07:15)
[2023-03-10] MEDS: EMPAGLIFLOZIN 10 MG TABLET PO SCH (07:15)
[2023-03-10] MEDS ORDERED: furosemide 40mg/4ml inj IV SCH (08:00)
[2023-03-10] MEDS ORDERED: aspirin 81mg, enteric-coated 1 TAB TABLET.DR PO SCH (08:00)
[2023-03-10] MEDS ORDERED: non-formulary drug (Ubidecarenone (Coq-10) 100 MG) PO SCH (08:00)
[2023-03-10] MEDS ORDERED: clopidogrel 75mg tablet PO SCH (08:00)
[2023-03-10 08:08] LABS: ALANINE AMINOTRANSFERASE 34 U/L (12-78); ALBUMIN 3.8 G/DL (3.4-5.0); ALKALINE PHOSPHATASE 51 IU/L (46-116); ANION GAP 10 (8-16); ASPARTATE AMINO TRANSFERASE 27 U/L (10-37); BLOOD UREA NITROGEN 55 MG/DL (7-18); BUN/CREATININE RATIO 37.7 (10.0-20.0); CALCIUM 9.5 MG/DL (8.5-10.1); CHLORIDE 90 MMOL/L (99-107); CREATININE 1.46 MG/DL (0.60-1.10); GLUCOSE 122 MG/DL (70-104); MAGNESIUM 2.7 MG/DL (1.5-2.4); SODIUM 134 MMOL/L (135-145); TOTAL CARBON DIOXIDE 34.4 MMOL/L (24-32); TOTAL PROTEIN 7.7 G/DL (6.4-8.2); eCRCL 55 ML/MIN; eGFR 48 ML/MIN
[2023-03-10 08:13] LABS: POTASSIUM 2.8 MMOL/L (3.5-5.1)
[2023-03-10] MEDS: K and/or MAG REPLACEMENT MC SCH ×2 (08:22→20:00)
[2023-03-10 08:27] LABS: BASOPHILS # (AUTO) 0.1 X10'3 (0-0.2); EOSINOPHILS # (AUTO) 0.1 X10'3 (0-0.9); EOSINOPHILS % (AUTO) 1.8 % (0-6); HEMATOCRIT 38.6 % (42.0-52.0); HEMOGLOBIN 12.9 g/dl (14.0-17.9); LYMPHOCYTES # (AUTO) 1.2 X10'3 (1.1-4.8); MEAN CORPUSCULAR HEMOGLOBIN 29.1 PG (27.0-31.0); MEAN CORPUSCULAR HGB CONC 33.4 g/dL (33.0-36.5); MEAN CORPUSCULAR VOLUME 87.2 FL (78-98); MEAN PLATELET VOLUME 7.4 FL (7.4-10.4); MONOCYTES # (AUTO) 0.9 X10'3 (0-0.9); MONOCYTES % (AUTO) 12.3 % (2-12); NEUTROPHILS % (AUTO) 67.9 % (42-75); PLATELET COUNT 264 X10'3 (140-440); RED BLOOD COUNT 4.43 X10'6 (4.70-6.10); RED CELL DISTRIBUTION WIDTH 15.8 % (11.5-14.5); WHITE BLOOD COUNT 7.3 X10'3 (4.5-11.0)
[2023-03-10] MEDS ORDERED: potassium Cl 20 mEq SR tablet PO STA (09:28)
[2023-03-10] MEDS: DOBUTamine-DoBUTrex 500mg/D5W 250 ML IV SCH (11:13)
[2023-03-10] MEDS: heparin 25,000 UNIT/250ml bag 250 ML IV PRN (16:15)
--- NOTE | 2023-03-10 18:20 | NUR ---
Problems reprioritized. Patient report given, questions answered & plan of care reviewed with Geoff. Addendum: 03/10/23 at 1821 by Colby Wilson RN Amended: Links added.
[2023-03-10] MEDS: carVEDilol 12.5mg tablet PO SCH (20:35)
[2023-03-10] MEDS: atorvastatin 20mg tablet PO SCH (20:39)
[2023-03-11] VITALS (15 sets, daily range): BP systolic 85–115; BP diastolic 49–74; PULSE 80–86; RESP 10–19; TEMP 97–98.2; O2SAT 93–99
[2023-03-11 05:14] LABS: BASOPHILS # (AUTO) 0.1 X10'3 (0-0.2); EOSINOPHILS # (AUTO) 0.1 X10'3 (0-0.9); EOSINOPHILS % (AUTO) 0.8 % (0-6); HEMATOCRIT 40.9 % (42.0-52.0); HEMOGLOBIN 13.7 g/dl (14.0-17.9); LYMPHOCYTES # (AUTO) 1.3 X10'3 (1.1-4.8); LYMPHOCYTES % (AUTO) 12.2 % (21-51); MEAN CORPUSCULAR HEMOGLOBIN 29.1 PG (27.0-31.0); MEAN CORPUSCULAR HGB CONC 33.4 g/dL (33.0-36.5); MEAN CORPUSCULAR VOLUME 87.2 FL (78-98); MEAN PLATELET VOLUME 7.5 FL (7.4-10.4); MONOCYTES % (AUTO) 9.8 % (2-12); NEUTROPHILS # (AUTO) 7.8 X10'3 (1.8-7.7); NEUTROPHILS % (AUTO) 76.2 % (42-75); PLATELET COUNT 277 X10'3 (140-440); RED BLOOD COUNT 4.69 X10'6 (4.70-6.10); RED CELL DISTRIBUTION WIDTH 16.1 % (11.5-14.5); WHITE BLOOD COUNT 10.3 X10'3 (4.5-11.0)
[2023-03-11] MEDS: DOBUTamine-DoBUTrex 500mg/D5W 250 ML IV SCH ×3 (05:15→23:11)
[2023-03-11 05:23] LABS: ALANINE AMINOTRANSFERASE 32 U/L (12-78); ALBUMIN 3.8 G/DL (3.4-5.0); ALBUMIN/GLOBULIN RATIO 0.9 (1.1-1.5); ALKALINE PHOSPHATASE 51 IU/L (46-116); ANION GAP 9 (8-16); ASPARTATE AMINO TRANSFERASE 21 U/L (10-37); BILIRUBIN,TOTAL 0.8 MG/DL (0.1-1.0); BLOOD UREA NITROGEN 59 MG/DL (7-18); BUN/CREATININE RATIO 42.1 (10.0-20.0); CALCIUM 9.8 MG/DL (8.5-10.1); CHLORIDE 90 MMOL/L (99-107); GLUCOSE 163 MG/DL (70-104); MAGNESIUM 3.1 MG/DL (1.5-2.4); POTASSIUM 3.7 MMOL/L (3.5-5.1); SODIUM 129 MMOL/L (135-145); TOTAL CARBON DIOXIDE 29.9 MMOL/L (24-32); TOTAL PROTEIN 7.9 G/DL (6.4-8.2); eCRCL 58 ML/MIN; eGFR 50 ML/MIN
[2023-03-11] MEDS: K and/or MAG REPLACEMENT MC SCH ×2 (08:00→20:40)
[2023-03-11] MEDS: docusate sod 100mg capsule PO SCH ×2 (08:00→20:00)
[2023-03-11] MEDS: metolazone 2.5mg tablet PO SCH (08:24)
[2023-03-11] MEDS: DAPAGLIFLOZIN 10MG TABLET PO SCH (08:24)
[2023-03-11] MEDS: isosorbide mononitrate 30mg tab.SR.24H PO SCH (08:25)
[2023-03-11] MEDS: OMEGA-3/DHA/EPA/FISH OIL 1 EACH CAPSULE.DR PO SCH (08:25)
[2023-03-11] MEDS: gemfibrozil 600mg tablet PO SCH ×2 (08:26→20:38)
[2023-03-11] MEDS: ascorbic acid 500mg tablet PO SCH (08:26)
[2023-03-11] MEDS: EMPAGLIFLOZIN 10 MG TABLET PO SCH (08:26)
[2023-03-11] MEDS: furosemide 40mg/4ml inj IV SCH ×2 (08:28→20:00)
[2023-03-11] MEDS: sacubitril/valsartan 24mg-26mg tablet PO SCH ×2 (08:28→20:00)
[2023-03-11] MEDS: spironolactone 25 MG tablet PO SCH (08:29)
[2023-03-11] MEDS ORDERED: clopidogrel 75mg tablet PO ONE (10:20)
[2023-03-11] MEDS ORDERED: aspirin 81mg, enteric-coated 1 TAB TABLET.DR PO ONE (10:20)
[2023-03-11] MEDS: potassium Cl 20 mEq SR tablet PO PRN ×2 (11:30→20:38)
--- NOTE | 2023-03-11 18:56 | NUR ---
Problems reprioritized. Patient report given, questions answered & plan of care reviewed with Myriam MAR.
[2023-03-11] MEDS: atorvastatin 20mg tablet PO SCH (20:38)
[2023-03-11] MEDS: carVEDilol 12.5mg tablet PO SCH (20:43)
[2023-03-12] VITALS (19 sets, daily range): BP systolic 87–114; BP diastolic 39–69; PULSE 55–80; RESP 8–20; TEMP 97.4–97.7; O2SAT 95–98
--- NOTE | 2023-03-12 06:15 | NUR ---
Problems reprioritized. Patient report given, questions answered & plan of care reviewed with Vincenzo.
--- NOTE | 2023-03-12 06:19 | NUR ---
Patient in room PCU 3010. I have received report from Myriam MAR and had the opportunity to ask questions and assume patient care.
[2023-03-12 06:44] LABS: BASOPHILS # (AUTO) 0.1 X10'3 (0-0.2); BASOPHILS % (AUTO) 0.5 % (0-1); EOSINOPHILS % (AUTO) 0.3 % (0-6); HEMATOCRIT 41.5 % (42.0-52.0); LYMPHOCYTES % (AUTO) 8.6 % (21-51); MEAN CORPUSCULAR HEMOGLOBIN 29.2 PG (27.0-31.0); MEAN CORPUSCULAR HGB CONC 33.7 g/dL (33.0-36.5); MEAN CORPUSCULAR VOLUME 86.6 FL (78-98); MONOCYTES # (AUTO) 1.1 X10'3 (0-0.9); MONOCYTES % (AUTO) 9.8 % (2-12); NEUTROPHILS # (AUTO) 9.3 X10'3 (1.8-7.7); NEUTROPHILS % (AUTO) 80.8 % (42-75); PLATELET COUNT 274 X10'3 (140-440); RED BLOOD COUNT 4.79 X10'6 (4.70-6.10); RED CELL DISTRIBUTION WIDTH 15.6 % (11.5-14.5); WHITE BLOOD COUNT 11.5 X10'3 (4.5-11.0)
[2023-03-12 07:17] LABS: ALANINE AMINOTRANSFERASE 31 U/L (12-78); ALBUMIN 3.8 G/DL (3.4-5.0); ALBUMIN/GLOBULIN RATIO 0.9 (1.1-1.5); ALKALINE PHOSPHATASE 54 IU/L (46-116); ANION GAP 7 (8-16); ASPARTATE AMINO TRANSFERASE 21 U/L (10-37); BILIRUBIN,TOTAL 1.1 MG/DL (0.1-1.0); BLOOD UREA NITROGEN 45 MG/DL (7-18); BUN/CREATININE RATIO 34.9 (10.0-20.0); CALCIUM 9.5 MG/DL (8.5-10.1); CHLORIDE 87 MMOL/L (99-107); CREATININE 1.29 MG/DL (0.60-1.10); GLUCOSE 122 MG/DL (70-104); MAGNESIUM 2.6 MG/DL (1.5-2.4); POTASSIUM 3.6 MMOL/L (3.5-5.1); PRO BRAIN NATRIURETIC PEPTIDE 660 PG/ML (0-125); SODIUM 126 MMOL/L (135-145); TOTAL CARBON DIOXIDE 32.1 MMOL/L (24-32); eCRCL 63 ML/MIN; eGFR 55 ML/MIN
[2023-03-12] MEDS: K and/or MAG REPLACEMENT MC SCH ×2 (08:00→20:00)
[2023-03-12] MEDS: docusate sod 100mg capsule PO SCH ×2 (08:00→20:00)
[2023-03-12] MEDS: ascorbic acid 500mg tablet PO SCH (08:08)
[2023-03-12] MEDS: gemfibrozil 600mg tablet PO SCH ×2 (08:08→20:49)
[2023-03-12] MEDS: OMEGA-3/DHA/EPA/FISH OIL 1 EACH CAPSULE.DR PO SCH (08:09)
[2023-03-12] MEDS: spironolactone 25 MG tablet PO SCH (08:09)
[2023-03-12] MEDS: isosorbide mononitrate 30mg tab.SR.24H PO SCH (08:10)
[2023-03-12] MEDS: clopidogrel 75mg tablet PO SCH (08:11)
[2023-03-12] MEDS: aspirin 81mg, enteric-coated 1 TAB TABLET.DR PO SCH (08:11)
[2023-03-12] MEDS: metolazone 2.5mg tablet PO SCH (08:11)
[2023-03-12] MEDS: EMPAGLIFLOZIN 10 MG TABLET PO SCH (08:11)
[2023-03-12] MEDS: furosemide 40mg/4ml inj IV SCH ×2 (08:12→20:51)
[2023-03-12] MEDS: DAPAGLIFLOZIN 10MG TABLET PO SCH (08:12)
[2023-03-12] MEDS: sacubitril/valsartan 24mg-26mg tablet PO SCH ×2 (08:13→20:49)
[2023-03-12] MEDS ORDERED: FURO40TA4 PO ×2 (08:45)
[2023-03-12] MEDS ORDERED: POTA-207 PO ×2 (08:45)
[2023-03-12] MEDS ORDERED: LISI5TAB22 PO (08:45)
[2023-03-12] MEDS ORDERED: DOBUTamine-DoBUTrex 500mg/D5W 250 ML IV SCH (08:50)
[2023-03-12] MEDS ORDERED: MIDAZolam 1mg/ml 10ml vial IV ONE (11:10)
[2023-03-12] MEDS ORDERED: morphine /PF 1mg/ml 10ml inj. IV ONE (11:15)
--- NOTE | 2023-03-12 11:55 | NUR ---
Pt is prepped and set for KALPANA and cardioversion. Pt ate 4 hours previous to procedure, Dr Muro has been notified and has approved.
--- NOTE | 2023-03-12 14:13 | NUR ---
PAGER ID: [phone] MESSAGE: Niecy 3010, Pt's BP has been steadily lowering. Lowest was 67/37, most recent was 83/49. Did you want some albumin ordered for him? Vincenzo [phone]
[2023-03-12] MEDS ORDERED: amiodarone 200mg tablet PO ONE (17:45)
--- NOTE | 2023-03-12 18:23 | NUR ---
Problems reprioritized. Patient report given, questions answered & plan of care reviewed with Stephanie MAR.
[2023-03-12 19:43] LABS: INR 1.1 INR; PROTHROMBIN TIME 11.4 SECONDS (9.0-12.0)
[2023-03-12] MEDS: carVEDilol 12.5mg tablet PO SCH (20:49)
[2023-03-12] MEDS: amiodarone 200mg tablet PO SCH (20:50)
[2023-03-12] MEDS: atorvastatin 20mg tablet PO SCH (20:50)
[2023-03-12] MEDS: enoxaparin 100mg/ml syringe SUBCUT SCH (20:51)
[2023-03-12] MEDS ORDERED: warfarin 4mg tablet PO ONE (21:00)
[2023-03-13] VITALS (12 sets, daily range): BP systolic 76–120; BP diastolic 34–68; PULSE 70–80; RESP 11–16; TEMP 97.3–98.6; O2SAT 93–98
--- NOTE | 2023-03-13 06:30 | NUR ---
Patient in room PCU 3010. I have received report from Stephanie MAR and had the opportunity to ask questions and assume patient care.
--- NOTE | 2023-03-13 06:31 | NUR ---
Problems reprioritized. Patient report given, questions answered & plan of care reviewed with ZAID Loya. Pt stable at shift change.
[2023-03-13 06:47] LABS: BASOPHILS % (AUTO) 0.4 % (0-1); EOSINOPHILS % (AUTO) 0.1 % (0-6); HEMATOCRIT 38.5 % (42.0-52.0); HEMOGLOBIN 12.9 g/dl (14.0-17.9); LYMPHOCYTES # (AUTO) 0.8 X10'3 (1.1-4.8); LYMPHOCYTES % (AUTO) 6.6 % (21-51); MEAN CORPUSCULAR HEMOGLOBIN 29.2 PG (27.0-31.0); MEAN CORPUSCULAR HGB CONC 33.6 g/dL (33.0-36.5); MEAN CORPUSCULAR VOLUME 86.9 FL (78-98); MEAN PLATELET VOLUME 7.1 FL (7.4-10.4); MONOCYTES # (AUTO) 0.9 X10'3 (0-0.9); MONOCYTES % (AUTO) 7.9 % (2-12); PLATELET COUNT 229 X10'3 (140-440); RED BLOOD COUNT 4.43 X10'6 (4.70-6.10); RED CELL DISTRIBUTION WIDTH 16.4 % (11.5-14.5); WHITE BLOOD COUNT 11.8 X10'3 (4.5-11.0)
[2023-03-13 07:01] LABS: INR 1.1 INR; PROTHROMBIN TIME 11.6 SECONDS (9.0-12.0)
[2023-03-13 07:23] LABS: ALANINE AMINOTRANSFERASE 26 U/L (12-78); ALBUMIN 3.4 G/DL (3.4-5.0); ALBUMIN/GLOBULIN RATIO 0.9 (1.1-1.5); ALKALINE PHOSPHATASE 52 IU/L (46-116); ANION GAP 11 (8-16); ASPARTATE AMINO TRANSFERASE 20 U/L (10-37); BILIRUBIN,TOTAL 0.9 MG/DL (0.1-1.0); BLOOD UREA NITROGEN 55 MG/DL (7-18); BUN/CREATININE RATIO 35.7 (10.0-20.0); CALCIUM 9.2 MG/DL (8.5-10.1); CHLORIDE 85 MMOL/L (99-107); CREATININE 1.54 MG/DL (0.60-1.10); GLUCOSE 122 MG/DL (70-104); MAGNESIUM 2.7 MG/DL (1.5-2.4); POTASSIUM 3.1 MMOL/L (3.5-5.1); PRO BRAIN NATRIURETIC PEPTIDE 640 PG/ML (0-125); SODIUM 125 MMOL/L (135-145); TOTAL CARBON DIOXIDE 28.8 MMOL/L (24-32); TOTAL PROTEIN 7.4 G/DL (6.4-8.2); eCRCL 53 ML/MIN; eGFR 45 ML/MIN
[2023-03-13] MEDS: potassium Cl 20 mEq SR tablet PO PRN ×3 (08:04→20:54)
[2023-03-13] MEDS: OMEGA-3/DHA/EPA/FISH OIL 1 EACH CAPSULE.DR PO SCH (08:04)
[2023-03-13] MEDS: gemfibrozil 600mg tablet PO SCH ×2 (08:04→20:56)
[2023-03-13] MEDS: enoxaparin 100mg/ml syringe SUBCUT SCH ×2 (08:04→21:04)
[2023-03-13] MEDS: EMPAGLIFLOZIN 10 MG TABLET PO SCH (08:04)
[2023-03-13] MEDS: clopidogrel 75mg tablet PO SCH (08:05)
[2023-03-13] MEDS: metolazone 2.5mg tablet PO SCH (08:05)
[2023-03-13] MEDS: aspirin 81mg, enteric-coated 1 TAB TABLET.DR PO SCH (08:05)
[2023-03-13] MEDS: isosorbide mononitrate 30mg tab.SR.24H PO SCH (08:05)
[2023-03-13] MEDS: ascorbic acid 500mg tablet PO SCH (08:05)
[2023-03-13] MEDS: sacubitril/valsartan 24mg-26mg tablet PO SCH ×2 (08:05→21:09)
[2023-03-13] MEDS: amiodarone 200mg tablet PO SCH ×2 (08:05→20:57)
[2023-03-13] MEDS: spironolactone 25 MG tablet PO SCH (08:06)
[2023-03-13] MEDS: DAPAGLIFLOZIN 10MG TABLET PO SCH (08:06)
[2023-03-13] MEDS: K and/or MAG REPLACEMENT MC SCH ×2 (08:07→20:00)
[2023-03-13] MEDS: docusate sod 100mg capsule PO SCH ×2 (08:07→20:57)
--- NOTE | 2023-03-13 09:38 | NUR ---
Initial: Pt admit for NSTEMI and CHF exacerbation. Currently on a 2 g sodium restricted diet with 1.2 L fluid restriction and eating well, documented with 100% PO intake of all meals since admit meeting 97% estimated energy needs and 100% estimated protein needs. LBM 03/11 per EMR. Pt receiving routine bowel care. No nutrition intervention implemented at this time. Will continue to follow and make recommendations as appropriate. Recommendations: 1) Consider liberalizing to regular diet given hyponatremia; continue dry tray per physician 2) Monitor need for additional protein for satiety 3) Routine bowel care 4) Scaled weight this admit; subsequent weekly scaled weights Addendum: 03/13/23 at [address] Amended: Links added.
--- NOTE | 2023-03-13 10:22 | NUR ---
Dr Gasca has ordered that the dobutamine gtt be stopped now. The order has been cancelled and im turning it off now.
[2023-03-13] MEDS ORDERED: ondansetron 4mg rapidly disintigrating tab PO PRN (15:25)
[2023-03-13 15:30] LABS: ALBUMIN 3.9 G/DL (3.4-5.0); ANION GAP 14 (8-16); BLOOD UREA NITROGEN 61 MG/DL (7-18); BUN/CREATININE RATIO 32.6 (10.0-20.0); CALCIUM 9.4 MG/DL (8.5-10.1); CHLORIDE 85 MMOL/L (99-107); CREATININE 1.87 MG/DL (0.60-1.10); GLUCOSE 101 MG/DL (70-104); POTASSIUM 3.8 MMOL/L (3.5-5.1); SODIUM 126 MMOL/L (135-145); TOTAL CARBON DIOXIDE 26.9 MMOL/L (24-32); eCRCL 43 ML/MIN; eGFR 36 ML/MIN
--- NOTE | 2023-03-13 18:41 | NUR ---
Problems reprioritized. Patient report given, questions answered & plan of care reviewed with Stephanie MAR.
[2023-03-13] MEDS: carVEDilol 12.5mg tablet PO SCH (20:55)
[2023-03-13] MEDS: atorvastatin 20mg tablet PO SCH (20:56)
[2023-03-13] MEDS: warfarin 4mg tablet PO SCH (21:18)
[2023-03-14 02:49] VITALS: BP 80/42; PULSE 73; RESP 15; TEMP 97.6; O2SAT 96
--- NOTE | 2023-03-14 02:58 | NUR ---
paged provider PAGER ID: [phone] MESSAGE: PCU [id number]. NiecyShyannePetros Pt BP manually is 80/42, asymptomatic. Pt has been a little hypotensive during this visit. please advise. Stephanie iyer RN [phone] Addendum: 03/14/23 at 0317 by Stephanie Adorno RN Nurse spoke with , no new orders given at this time.
--- NOTE | 2023-03-14 03:00 | NUR ---
I agree with DRYWALL APPLICATOR's assessment
[2023-03-14 06:00] VITALS: BP 83/48; PULSE 71; RESP 16; TEMP 98.3; O2SAT 98
--- NOTE | 2023-03-14 06:36 | NUR ---
Problems reprioritized. Patient report given, questions answered & plan of care reviewed with Mell MAR. Pt stable at shift change.
[2023-03-14 07:59] LABS: BASOPHILS % (AUTO) 0.3 % (0-1); EOSINOPHILS % (AUTO) 0.1 % (0-6); HEMATOCRIT 38.9 % (42.0-52.0); HEMOGLOBIN 13.1 g/dl (14.0-17.9); INR 1.1 INR; LYMPHOCYTES # (AUTO) 1.1 X10'3 (1.1-4.8); LYMPHOCYTES % (AUTO) 9.1 % (21-51); MEAN CORPUSCULAR HGB CONC 33.7 g/dL (33.0-36.5); MEAN PLATELET VOLUME 7.5 FL (7.4-10.4); MONOCYTES # (AUTO) 1.1 X10'3 (0-0.9); MONOCYTES % (AUTO) 8.9 % (2-12); NEUTROPHILS # (AUTO) 9.8 X10'3 (1.8-7.7); NEUTROPHILS % (AUTO) 81.6 % (42-75); PLATELET COUNT 254 X10'3 (140-440); PROTHROMBIN TIME 11.9 SECONDS (9.0-12.0); RED BLOOD COUNT 4.53 X10'6 (4.70-6.10); RED CELL DISTRIBUTION WIDTH 16.3 % (11.5-14.5)
[2023-03-14 08:00] VITALS: RESP 16; O2SAT 98
[2023-03-14] MEDS: K and/or MAG REPLACEMENT MC SCH ×2 (08:00→20:00)
[2023-03-14] MEDS: isosorbide mononitrate 30mg tab.SR.24H PO SCH (08:00)
[2023-03-14] MEDS ORDERED: furosemide 40mg/4ml inj IV SCH (08:00)
[2023-03-14] MEDS: docusate sod 100mg capsule PO SCH ×2 (08:00→19:29)
[2023-03-14] MEDS: ascorbic acid 500mg tablet PO SCH (08:07)
[2023-03-14] MEDS: DAPAGLIFLOZIN 10MG TABLET PO SCH (08:07)
[2023-03-14] MEDS: sacubitril/valsartan 24mg-26mg tablet PO SCH (08:07)
[2023-03-14] MEDS: enoxaparin 100mg/ml syringe SUBCUT SCH ×2 (08:07→19:28)
[2023-03-14] MEDS: amiodarone 200mg tablet PO SCH ×2 (08:08→19:28)
[2023-03-14] MEDS: OMEGA-3/DHA/EPA/FISH OIL 1 EACH CAPSULE.DR PO SCH (08:08)
[2023-03-14] MEDS: gemfibrozil 600mg tablet PO SCH ×2 (08:08→19:28)
[2023-03-14] MEDS: clopidogrel 75mg tablet PO SCH (08:08)
[2023-03-14] MEDS: EMPAGLIFLOZIN 10 MG TABLET PO SCH (08:09)
[2023-03-14] MEDS: aspirin 81mg, enteric-coated 1 TAB TABLET.DR PO SCH (08:09)
[2023-03-14] MEDS: metolazone 2.5mg tablet PO SCH (08:09)
[2023-03-14] MEDS: spironolactone 25 MG tablet PO SCH (08:10)
[2023-03-14 08:23] LABS: ALANINE AMINOTRANSFERASE 26 U/L (12-78); ALBUMIN 3.3 G/DL (3.4-5.0); ALBUMIN/GLOBULIN RATIO 0.8 (1.1-1.5); ALKALINE PHOSPHATASE 49 IU/L (46-116); ANION GAP 10 (8-16); ASPARTATE AMINO TRANSFERASE 18 U/L (10-37); BILIRUBIN,TOTAL 0.8 MG/DL (0.1-1.0); BLOOD UREA NITROGEN 68 MG/DL (7-18); BUN/CREATININE RATIO 40.5 (10.0-20.0); CALCIUM 9.2 MG/DL (8.5-10.1); CHLORIDE 88 MMOL/L (99-107); CREATININE 1.68 MG/DL (0.60-1.10); GLUCOSE 120 MG/DL (70-104); MAGNESIUM 2.8 MG/DL (1.5-2.4); POTASSIUM 3.9 MMOL/L (3.5-5.1); PRO BRAIN NATRIURETIC PEPTIDE 963 PG/ML (0-125); SODIUM 124 MMOL/L (135-145); TOTAL PROTEIN 7.3 G/DL (6.4-8.2); eCRCL 48 ML/MIN; eGFR 40 ML/MIN
[2023-03-14] MEDS: normal saline 1000ml 1,000 ML IV SCH (10:51)
[2023-03-14 11:16] LABS: SODIUM,URINE RANDOM < 15 MEQ/L
[2023-03-14 11:22] LABS: OSMOLALITY UA 531 MOSM/K (50-1400)
[2023-03-14 18:04] VITALS: BP 95/63; PULSE 70; RESP 16; TEMP 97.7; O2SAT 99
[2023-03-14] MEDS: atorvastatin 20mg tablet PO SCH (19:28)
[2023-03-14] MEDS: carVEDilol 12.5mg tablet PO SCH (19:28)
[2023-03-14] MEDS: warfarin 4mg tablet PO SCH (19:31)
[2023-03-15 01:00] VITALS: BP 90/51; PULSE 70; RESP 16; TEMP 97.5; O2SAT 98
--- NOTE | 2023-03-15 01:36 | NUR ---
because of restraints and bipap had to sit for another pt for sometime, no 1800's were done and missed 2200's (vitals)
[2023-03-15] MEDS: normal saline 1000ml 1,000 ML IV SCH ×3 (04:28→15:55)
[2023-03-15 06:00] VITALS: BP 110/68; PULSE 70; RESP 18; TEMP 97.6; O2SAT 98
[2023-03-15 08:00] VITALS: RESP 18; O2SAT 98
[2023-03-15] MEDS: docusate sod 100mg capsule PO SCH (08:00)
[2023-03-15] MEDS: K and/or MAG REPLACEMENT MC SCH (08:00)
[2023-03-15 08:42] LABS: BASOPHILS # (AUTO) 0.1 X10'3 (0-0.2); BASOPHILS % (AUTO) 0.8 % (0-1); EOSINOPHILS # (AUTO) 0.1 X10'3 (0-0.9); EOSINOPHILS % (AUTO) 0.9 % (0-6); HEMATOCRIT 38.3 % (42.0-52.0); HEMOGLOBIN 12.7 g/dl (14.0-17.9); LYMPHOCYTES % (AUTO) 11.2 % (21-51); MEAN CORPUSCULAR HGB CONC 33.1 g/dL (33.0-36.5); MEAN CORPUSCULAR VOLUME 87.6 FL (78-98); MEAN PLATELET VOLUME 7.7 FL (7.4-10.4); MONOCYTES # (AUTO) 0.9 X10'3 (0-0.9); MONOCYTES % (AUTO) 10.9 % (2-12); NEUTROPHILS # (AUTO) 6.5 X10'3 (1.8-7.7); NEUTROPHILS % (AUTO) 76.2 % (42-75); PLATELET COUNT 222 X10'3 (140-440); RED BLOOD COUNT 4.37 X10'6 (4.70-6.10); RED CELL DISTRIBUTION WIDTH 16.4 % (11.5-14.5); WHITE BLOOD COUNT 8.5 X10'3 (4.5-11.0)
[2023-03-15 08:57] LABS: INR 1.3 INR
[2023-03-15 09:02] LABS: ALANINE AMINOTRANSFERASE 23 U/L (12-78); ALBUMIN/GLOBULIN RATIO 0.8 (1.1-1.5); ALKALINE PHOSPHATASE 44 IU/L (46-116); ANION GAP 7 (8-16); ASPARTATE AMINO TRANSFERASE 21 U/L (10-37); BILIRUBIN,TOTAL 0.4 MG/DL (0.1-1.0); BLOOD UREA NITROGEN 64 MG/DL (7-18); BUN/CREATININE RATIO 47.1 (10.0-20.0); CALCIUM 8.6 MG/DL (8.5-10.1); CHLORIDE 93 MMOL/L (99-107); CREATININE 1.36 MG/DL (0.60-1.10); GLUCOSE 99 MG/DL (70-104); POTASSIUM 3.7 MMOL/L (3.5-5.1); SODIUM 127 MMOL/L (135-145); TOTAL CARBON DIOXIDE 27.1 MMOL/L (24-32); TOTAL PROTEIN 6.6 G/DL (6.4-8.2); eCRCL 60 ML/MIN; eGFR 52 ML/MIN
[2023-03-15 09:10] LABS: PROTHROMBIN TIME 13.4 SECONDS (9.0-12.0)
[2023-03-15] MEDS: OMEGA-3/DHA/EPA/FISH OIL 1 EACH CAPSULE.DR PO SCH (09:36)
[2023-03-15] MEDS: gemfibrozil 600mg tablet PO SCH (09:36)
[2023-03-15] MEDS: ascorbic acid 500mg tablet PO SCH (09:36)
[2023-03-15] MEDS: DAPAGLIFLOZIN 10MG TABLET PO SCH (09:36)
[2023-03-15] MEDS: amiodarone 200mg tablet PO SCH (09:37)
[2023-03-15] MEDS: aspirin 81mg, enteric-coated 1 TAB TABLET.DR PO SCH (09:37)
[2023-03-15] MEDS: EMPAGLIFLOZIN 10 MG TABLET PO SCH (09:37)
[2023-03-15] MEDS: clopidogrel 75mg tablet PO SCH (09:37)
[2023-03-15] MEDS: isosorbide mononitrate 30mg tab.SR.24H PO SCH (09:38)
[2023-03-15] MEDS: enoxaparin 100mg/ml syringe SUBCUT SCH (09:42)
[2023-03-15 09:50] LABS: OSMOLALITY 291 MOSM/K (280-300)
[2023-03-15] MEDS ORDERED: lisinopril 5mg tablet PO ONE (10:10)
[2023-03-15 11:00] VITALS: BP 120/68; PULSE 73; RESP 15; TEMP 97.5; O2SAT 97
[2023-03-15 13:29] VITALS: BP_SYST 120; PULSE 73
--- NOTE | 2023-03-15 14:29 | NUR ---
PAGED DR. PHILIPPE REGARDING PACEMAKER INTERROGATION. PAGER ID: [phone] MESSAGE: [id number]. TED. ARIAN NOYOLA REPORT IN THE CHART. THANK YOU. SAM MAR X [phone]
[2023-03-15] MEDS ORDERED: AMIO200T67 PO (15:25)
[2023-03-15] MEDS ORDERED: WARF4TAB9 PO (15:25)
[2023-03-15] MEDS ORDERED: FURO20TA4 PO (15:25)
--- NOTE | 2023-03-15 17:00 | NUR ---
Patient was given discharge instructions including home medications and new medications to continue, and education on heart failure, CAD, dietary and lifestyle changes. Patient was also given teaching about warfarin and follow up labs, including when to follow up with primary doctor and director of global sales. Patient verbalized understanding of all discharge teaching and instructions. Discharged home with personal belongings. PIV catheter discontinued, hemostasis achieved, and catheter tip intact.
== END 2023-03-15 17:00 | disposition home or self-care (01) | DRG 280 ==
LOC: ER 14:07 → PCU 3S 17:17
PROVIDERS: ADMIT Family Medicine; ATTEND Family Medicine
DX: I21.4 Non-ST elevation (NSTEMI) myocardial infarction (principal); I50.23 Acute on chronic systolic (congestive) heart failure; E87.1 Hypo-osmolality and hyponatremia; N17.9 Acute kidney failure, unspecified; I42.0 Dilated cardiomyopathy; I11.0 Hypertensive heart disease with heart failure; I25.110 Atherosclerotic heart disease of native coronary artery with unstable angina pectoris; G47.33 Obstructive sleep apnea (adult) (pediatric); Z96.653 Presence of artificial knee joint, bilateral; E87.6 Hypokalemia; I95.9 Hypotension, unspecified; E78.00 Pure hypercholesterolemia, unspecified; E66.9 Obesity, unspecified; I08.0 Rheumatic disorders of both mitral and aortic valves; I48.0 Paroxysmal atrial fibrillation; I49.5 Sick sinus syndrome; I87.2 Venous insufficiency (chronic) (peripheral); Z79.01 Long term (current) use of anticoagulants; Z79.82 Long term (current) use of aspirin; Z95.1 Presence of aortocoronary bypass graft; Z79.899 Other long term (current) drug therapy; Z95.0 Presence of cardiac pacemaker; Z95.5 Presence of coronary angioplasty implant and graft; Z87.891 Personal history of nicotine dependence; Z68.24 Body mass index [BMI] 24.0-24.9, adult
CPT/HCPCS: 36415; 71045; 80048; 80053; 82570; 83735; 83880; 83930; 83935; 84132; 84300; 84484; 85025; 85610; 85730; 87045; 87046; 93005; 93306; 93312; 93325; 93798; 94760; 97116; 97161; 97530; 99285; A4620; G0378; J1250; J1644; J1650; J1940; J2250; J2274; J3475; J7030

== ENCOUNTER 2023-04-23 13:34 | Inpatient (IN) | payer MEDICARE, OTHER ==
[~2023-04-23] VITALS: Ht 188 cm; Wt 113.7 kg
[~2023-04-23 13:34] MED LIST changes: +AMIO200T67 PO; +ASCO-336 PO; +CHOL100046 PO; +CLOP75TA34 PO; +DAPA10TA PO; -EZET10TA48 PO; -FURO-150 PO; +FURO20TA4 PO; -HYDR12.55 PO; -LISI20TA28 PO; +LISI5TAB22 PO; +MAGN400T39 PO; +OMEG-167 PO; -OMEG1CAP2 PO; -RIVA15TA PO; -ROSU10TA28 PO; +ROSU20TA73 PO; -SPIR25TA5 PO; +UBID100C16 PO; -UBID50TA3 PO; +WARF4TAB9 PO; +ZAR2.5T PO
[2023-04-23 13:56] LABS: BASOPHILS # (AUTO) 0.2 X10'3 (0-0.2); BASOPHILS % (AUTO) 1.9 % (0-1); EOSINOPHILS # (AUTO) 0.3 X10'3 (0-0.9); EOSINOPHILS % (AUTO) 3.4 % (0-6); HEMATOCRIT 40.3 % (42.0-52.0); HEMOGLOBIN 13.3 g/dl (14.0-17.9); LYMPHOCYTES # (AUTO) 1.3 X10'3 (1.1-4.8); LYMPHOCYTES % (AUTO) 13.5 % (21-51); MEAN CORPUSCULAR HEMOGLOBIN 28.5 PG (27.0-31.0); MEAN CORPUSCULAR HGB CONC 33.1 g/dL (33.0-36.5); MEAN PLATELET VOLUME 7.4 FL (7.4-10.4); MONOCYTES # (AUTO) 1.2 X10'3 (0-0.9); MONOCYTES % (AUTO) 12.5 % (2-12); NEUTROPHILS # (AUTO) 6.5 X10'3 (1.8-7.7); NEUTROPHILS % (AUTO) 68.7 % (42-75); PLATELET COUNT 296 X10'3 (140-440); RED BLOOD COUNT 4.69 X10'6 (4.70-6.10); RED CELL DISTRIBUTION WIDTH 16.9 % (11.5-14.5); WHITE BLOOD COUNT 9.5 X10'3 (4.5-11.0)
[2023-04-23 14:13] LABS: ALANINE AMINOTRANSFERASE 32 U/L (12-78); ALBUMIN/GLOBULIN RATIO 0.9 (1.1-1.5); ALKALINE PHOSPHATASE 55 IU/L (46-116); ANION GAP 9 (8-16); ASPARTATE AMINO TRANSFERASE 42 U/L (10-37); BILIRUBIN,TOTAL 0.6 MG/DL (0.1-1.0); BLOOD UREA NITROGEN 30 MG/DL (7-18); BUN/CREATININE RATIO 22.7 (10.0-20.0); CALCIUM 9.6 MG/DL (8.5-10.1); CHLORIDE 92 MMOL/L (99-107); CREATININE 1.32 MG/DL (0.60-1.10); GLUCOSE 128 MG/DL (70-104); PRO BRAIN NATRIURETIC PEPTIDE 2160 PG/ML (0-125); SODIUM 136 MMOL/L (135-145); TOTAL CARBON DIOXIDE 34.8 MMOL/L (24-32); TOTAL PROTEIN 8.4 G/DL (6.4-8.2); eCRCL 60 ML/MIN; eGFR 53 ML/MIN
[2023-04-23 14:14] LABS: POTASSIUM 2.5 MMOL/L (3.5-5.1)
[2023-04-23 14:17] LABS: INR 2.6 INR; PROTHROMBIN TIME 26.5 SECONDS (9.0-12.0)
[2023-04-23] MEDS ORDERED: aspirin 81mg tab.chew PO ONE (14:40)
[2023-04-23] MEDS ORDERED: nitroGLYCERIN 0.4mg/hour patch TD ONE (14:40)
[2023-04-23] MEDS ORDERED: potassium Cl 40MEQ/1/2NS 520ml 520 ML IV ONE (14:40)
[2023-04-23] MEDS ORDERED: DAPA10TA PO (14:51)
[2023-04-23] MEDS ORDERED: CARV6.2555 PO (14:51)
[2023-04-23] MEDS ORDERED: POTA-192 PO (14:53)
[2023-04-23] MEDS ORDERED: acetaminophen 325mg tablet PO PRN (15:10)
[2023-04-23] MEDS ORDERED: magnesium Cl slow-release 64mg tablet PO PRN (15:10)
[2023-04-23] MEDS ORDERED: ondansetron/PF 4mg/2ml inj IV PRN (15:10)
[2023-04-23] MEDS ORDERED: magnesium 4gm in 100ml NS 100 ML IV PRN (15:10)
[2023-04-23] MEDS ORDERED: magnesium 2GM in 50ml NS 50 ML IV PRN (15:10)
[2023-04-23] MEDS ORDERED: potassium Cl 40MEQ/1/2NS 520ml 520 ML IV PRN (15:10)
[2023-04-23] MEDS ORDERED: morphine 2 MG/ML inj. syringe IV PRN (15:10)
[2023-04-23 20:00] VITALS: RESP 18; O2SAT 97
[2023-04-23 20:07] VITALS: BP 115/70; PULSE 71; RESP 19; TEMP 99.1; O2SAT 98
[2023-04-23] MEDS: K and/or MAG REPLACEMENT MC SCH (20:16)
[2023-04-23] MEDS: DAPAGLIFLOZIN 10MG TABLET PO SCH (21:05)
[2023-04-23] MEDS: clopidogrel 75mg tablet PO SCH (21:05)
[2023-04-23] MEDS ORDERED: warfarin 1mg tablet PO ONE (21:40)
[2023-04-23] MEDS ORDERED: ROSUVASTATIN CALCIUM 5 MG TABLET PO ONE (21:50)
[2023-04-23 23:40] VITALS: BP 105/65; PULSE 74; RESP 15; TEMP 98.7; O2SAT 97
[2023-04-24] VITALS (9 sets, daily range): BP systolic 97–118; BP diastolic 51–76; PULSE 64–75; RESP 14–18; TEMP 97.2–98.1; O2SAT 96–99
[2023-04-24 06:19] LABS: BASOPHILS # (AUTO) 0.1 X10'3 (0-0.2); BASOPHILS % (AUTO) 1.2 % (0-1); EOSINOPHILS # (AUTO) 0.3 X10'3 (0-0.9); EOSINOPHILS % (AUTO) 4.2 % (0-6); HEMATOCRIT 35.9 % (42.0-52.0); HEMOGLOBIN 11.9 g/dl (14.0-17.9); LYMPHOCYTES # (AUTO) 1.2 X10'3 (1.1-4.8); LYMPHOCYTES % (AUTO) 17.6 % (21-51); MEAN CORPUSCULAR HEMOGLOBIN 28.4 PG (27.0-31.0); MEAN CORPUSCULAR HGB CONC 33.1 g/dL (33.0-36.5); MEAN CORPUSCULAR VOLUME 85.9 FL (78-98); MEAN PLATELET VOLUME 7.2 FL (7.4-10.4); MONOCYTES # (AUTO) 0.8 X10'3 (0-0.9); MONOCYTES % (AUTO) 11.4 % (2-12); NEUTROPHILS # (AUTO) 4.4 X10'3 (1.8-7.7); NEUTROPHILS % (AUTO) 65.6 % (42-75); PLATELET COUNT 205 X10'3 (140-440); RED BLOOD COUNT 4.18 X10'6 (4.70-6.10); RED CELL DISTRIBUTION WIDTH 16.8 % (11.5-14.5); WHITE BLOOD COUNT 6.7 X10'3 (4.5-11.0)
[2023-04-24 06:27] LABS: INR 2.7 INR; PROTHROMBIN TIME 26.9 SECONDS (9.0-12.0)
[2023-04-24 06:35] LABS: ALBUMIN 3.2 G/DL (3.4-5.0); ANION GAP 10 (8-16); BLOOD UREA NITROGEN 28 MG/DL (7-18); BUN/CREATININE RATIO 26.4 (10.0-20.0); CALCIUM 8.9 MG/DL (8.5-10.1); CHLORIDE 97 MMOL/L (99-107); CREATININE 1.06 MG/DL (0.60-1.10); GLUCOSE 106 MG/DL (70-104); MAGNESIUM 2.2 MG/DL (1.5-2.4); SODIUM 138 MMOL/L (135-145); eCRCL 74 ML/MIN; eGFR 69 ML/MIN
[2023-04-24 06:36] LABS: POTASSIUM 2.5 MMOL/L (3.5-5.1)
[2023-04-24] MEDS: DAPAGLIFLOZIN 10MG TABLET PO SCH (07:16)
[2023-04-24] MEDS: potassium chloride 10mEq ER tablet PO SCH (07:16)
[2023-04-24] MEDS: OMEGA-3/DHA/EPA/FISH OIL 1 EACH CAPSULE.DR PO SCH (07:16)
[2023-04-24] MEDS: aspirin 81mg, enteric-coated 1 TAB TABLET.DR PO SCH (07:17)
[2023-04-24] MEDS: potassium Cl 20 mEq SR tablet PO PRN ×5 (07:17→23:09)
[2023-04-24] MEDS: magnesium oxide 400mg tablet PO SCH (07:18)
[2023-04-24] MEDS: clopidogrel 75mg tablet PO SCH (07:18)
[2023-04-24] MEDS: gemfibrozil 600mg tablet PO SCH ×2 (07:18→19:18)
[2023-04-24] MEDS: isosorbide mononitrate 30mg tab.SR.24H PO SCH (07:18)
[2023-04-24] MEDS: ascorbic acid 500mg tablet PO SCH (07:18)
[2023-04-24] MEDS ORDERED: amiodarone 200mg tablet PO SCH (08:00)
[2023-04-24] MEDS ORDERED: non-formulary drug (Ubidecarenone (Coq-10) 100 MG) PO SCH (08:00)
[2023-04-24] MEDS: metolazone 2.5mg tablet PO SCH (08:12)
[2023-04-24] MEDS: K and/or MAG REPLACEMENT MC SCH ×2 (08:12→20:15)
[2023-04-24] MEDS ORDERED: potassium Cl 20 mEq SR tablet PO STA ×2 (12:27→16:56)
[2023-04-24] MEDS ORDERED: furosemide 20 MG/2 ML vial IV ONE ×2 (12:30→17:00)
[2023-04-24] MEDS ORDERED: ondansetron 4mg rapidly disintigrating tab PO PRN (14:20)
[2023-04-24] MEDS: amiodarone 200mg tablet PO SCH ×2 (19:18→19:38)
[2023-04-24] MEDS: carvedilol 6.25mg tablet PO SCH (20:22)
[2023-04-24] MEDS ORDERED: warfarin 4mg tablet PO SCH (21:00)
[2023-04-24] MEDS ORDERED: ROSUVASTATIN CALCIUM 5 MG TABLET PO SCH (21:00)
[2023-04-24] MEDS ORDERED: warfarin 1mg tablet PO ONE (21:00)
[2023-04-25] MEDS: potassium Cl 20 mEq SR tablet PO PRN (03:18)
[2023-04-25 03:23] VITALS: BP 95/56; PULSE 70; RESP 14; TEMP 97.4; O2SAT 96
[2023-04-25 06:00] VITALS: BP 118/46; PULSE 78; RESP 18; TEMP 97.1; O2SAT 97
[2023-04-25 06:23] LABS: ALBUMIN 3.6 G/DL (3.4-5.0); ANION GAP 10 (8-16); BLOOD UREA NITROGEN 31 MG/DL (7-18); BUN/CREATININE RATIO 27.7 (10.0-20.0); CALCIUM 9.4 MG/DL (8.5-10.1); CHLORIDE 98 MMOL/L (99-107); CREATININE 1.12 MG/DL (0.60-1.10); GLUCOSE 134 MG/DL (70-104); MAGNESIUM 2.3 MG/DL (1.5-2.4); POTASSIUM 3.3 MMOL/L (3.5-5.1); SODIUM 137 MMOL/L (135-145); TOTAL CARBON DIOXIDE 29.4 MMOL/L (24-32); eCRCL 70 ML/MIN; eGFR 65 ML/MIN
[2023-04-25 06:26] LABS: BASOPHILS # (AUTO) 0.1 X10'3 (0-0.2); EOSINOPHILS # (AUTO) 0.2 X10'3 (0-0.9); HEMOGLOBIN 12.1 g/dl (14.0-17.9); LYMPHOCYTES % (AUTO) 9.9 % (21-51); MEAN PLATELET VOLUME 7.2 FL (7.4-10.4); PLATELET COUNT 235 X10'3 (140-440)
[2023-04-25 06:29] LABS: EOSINOPHILS % (AUTO) 2.3 % (0-6); HEMATOCRIT 36.6 % (42.0-52.0); MEAN CORPUSCULAR HEMOGLOBIN 28.7 PG (27.0-31.0); MEAN CORPUSCULAR HGB CONC 33.1 g/dL (33.0-36.5); MEAN CORPUSCULAR VOLUME 86.5 FL (78-98); MONOCYTES % (AUTO) 9.4 % (2-12); NEUTROPHILS % (AUTO) 77.4 % (42-75); RED BLOOD COUNT 4.23 X10'6 (4.70-6.10); RED CELL DISTRIBUTION WIDTH 16.8 % (11.5-14.5); WHITE BLOOD COUNT 10.4 X10'3 (4.5-11.0)
[2023-04-25 08:00] VITALS: RESP 18
[2023-04-25] MEDS: K and/or MAG REPLACEMENT MC SCH (08:00)
[2023-04-25] MEDS: carvedilol 6.25mg tablet PO SCH (08:29)
[2023-04-25] MEDS: amiodarone 200mg tablet PO SCH (08:30)
[2023-04-25] MEDS: isosorbide mononitrate 30mg tab.SR.24H PO SCH (08:31)
[2023-04-25] MEDS: aspirin 81mg, enteric-coated 1 TAB TABLET.DR PO SCH (08:32)
[2023-04-25] MEDS: clopidogrel 75mg tablet PO SCH (08:32)
[2023-04-25] MEDS: DAPAGLIFLOZIN 10MG TABLET PO SCH (08:33)
[2023-04-25] MEDS: ascorbic acid 500mg tablet PO SCH (08:33)
[2023-04-25] MEDS: gemfibrozil 600mg tablet PO SCH (08:33)
[2023-04-25] MEDS: magnesium oxide 400mg tablet PO SCH (08:34)
[2023-04-25] MEDS: metolazone 2.5mg tablet PO SCH (08:34)
[2023-04-25] MEDS: potassium chloride 10mEq ER tablet PO SCH (08:34)
[2023-04-25] MEDS: OMEGA-3/DHA/EPA/FISH OIL 1 EACH CAPSULE.DR PO SCH (08:34)
[2023-04-25] MEDS ORDERED: spironolactone 25 MG tablet PO SCH (10:40)
[2023-04-25] MEDS ORDERED: AMI200T PO ×3 (10:57→14:28)
[2023-04-25] MEDS ORDERED: SPIR25TA PO (10:57)
[2023-04-25 11:39] VITALS: BP 106/63; PULSE 70; RESP 18; O2SAT 97
[2023-04-25 11:45] VITALS: TEMP 97.6
== END 2023-04-25 15:29 | disposition home or self-care (01) | DRG 280 ==
LOC: ER 13:34 → ED HOLD 15:14 → EDBEDREQ 18:18 → PCU 3S 19:52
PROVIDERS: ADMIT Internal Medicine; ATTEND Internal Medicine
DX: I11.0 Hypertensive heart disease with heart failure (principal); I50.23 Acute on chronic systolic (congestive) heart failure; I21.A1 Myocardial infarction type 2; I48.92 Unspecified atrial flutter; E87.6 Hypokalemia; I48.0 Paroxysmal atrial fibrillation; I42.0 Dilated cardiomyopathy; D64.9 Anemia, unspecified; E78.00 Pure hypercholesterolemia, unspecified; G47.33 Obstructive sleep apnea (adult) (pediatric); I25.10 Atherosclerotic heart disease of native coronary artery without angina pectoris; Z95.5 Presence of coronary angioplasty implant and graft; Z79.899 Other long term (current) drug therapy; I25.2 Old myocardial infarction; Z79.82 Long term (current) use of aspirin; Z79.02 Long term (current) use of antithrombotics/antiplatelets; Z95.0 Presence of cardiac pacemaker; Z82.49 Family history of ischemic heart disease and other diseases of the circulatory system; Z95.1 Presence of aortocoronary bypass graft; Z68.32 Body mass index [BMI] 32.0-32.9, adult
CPT/HCPCS: 36415; 80048; 80053; 83735; 83880; 84132; 84484; 85025; 85610; 87081; 93005; 99285; G0378; J1940; J3480

== ENCOUNTER 2023-06-18 08:52 | Day surgery (SDC) | payer MEDICARE, OTHER ==
[2023-06-15 10:41] LABS: BASOPHILS # (AUTO) 0.1 X10'3 (0-0.2); BASOPHILS % (AUTO) 1.6 % (0-1); EOSINOPHILS # (AUTO) 0.2 X10'3 (0-0.9); EOSINOPHILS % (AUTO) 2.6 % (0-6); HEMATOCRIT 38.7 % (42.0-52.0); HEMOGLOBIN 12.4 g/dl (14.0-17.9); LYMPHOCYTES # (AUTO) 1.2 X10'3 (1.1-4.8); LYMPHOCYTES % (AUTO) 13.5 % (21-51); MEAN CORPUSCULAR VOLUME 84.3 FL (78-98); MEAN PLATELET VOLUME 7.7 FL (7.4-10.4); MONOCYTES % (AUTO) 11.3 % (2-12); NEUTROPHILS # (AUTO) 6.1 X10'3 (1.8-7.7); PLATELET COUNT 271 X10'3 (140-440); RED BLOOD COUNT 4.59 X10'6 (4.70-6.10); RED CELL DISTRIBUTION WIDTH 17.8 % (11.5-14.5); WHITE BLOOD COUNT 8.6 X10'3 (4.5-11.0)
[2023-06-15 10:50] LABS: APTT 27 SECONDS (22-32); INR 1.2 INR; PROTHROMBIN TIME 12.9 SECONDS (9.0-12.0)
[2023-06-15 10:57] LABS: ANION GAP 12 (8-16); CALCIUM 9.3 MG/DL (8.5-10.1); CHLORIDE 95 MMOL/L (99-107); GLUCOSE 129 MG/DL (70-104); SODIUM 140 MMOL/L (135-145); TOTAL CARBON DIOXIDE 33.5 MMOL/L (24-32); eGFR 60 ML/MIN
[2023-06-15 11:13] LABS: BLOOD UREA NITROGEN 32 MG/DL (7-18); BUN/CREATININE RATIO 26.7 (10.0-20.0)
[2023-06-15 11:32] LABS: POTASSIUM 2.9 MMOL/L (3.5-5.1)
[2023-06-18] VITALS (10 sets, daily range): BP systolic 103–122; BP diastolic 60–77; PULSE 70–75; RESP 16; TEMP 97.5; O2SAT 91–98
[~2023-06-18] VITALS: Ht 188 cm; Wt 115.6 kg
[~2023-06-18 08:52] MED LIST changes: +AMI200T PO; -AMIO200T67 PO; -CARV25TA2 PO; +CARV6.2555 PO; -CHOL100046 PO; -LISI5TAB22 PO; +POTA-192 PO; +SPIR25TA PO
[2023-06-18] MEDS ORDERED: cefazolin 2gm/D5W 100mL 100 ML IV ONE (09:15)
[2023-06-18] MEDS ORDERED: AMI200T PO (09:26)
[2023-06-18] MEDS ORDERED: WARF4TAB69 PO (09:26)
[2023-06-18] MEDS ORDERED: SPIR25TA PO (09:26)
[2023-06-18] MEDS ORDERED: FURO-150 PO (09:26)
[2023-06-18] MEDS ORDERED: WARF-65 PO (09:26)
[2023-06-18] MEDS: sodium bicarbonate 1meq/ml inj 150 ML in dextrose 5%-water 1,000 ML IV SCH (10:31)
[2023-06-18] MEDS: potassium Cl 20 mEq SR tablet PO STA (10:33)
[2023-06-18] MEDS: acetylcysteine 200 MG/ml 4ml vial PO ONE (10:35)
[2023-06-18] MEDS ORDERED: midazolam 1 mg/ML 2ml injection ONE ×2 (10:37→12:43)
[2023-06-18] MEDS ORDERED: LIDOcaine 1% W/epiNEPHrine 1:100,000 20ml vial ONE (10:37)
[2023-06-18] MEDS ORDERED: fentaNYL/PF 50MCG/1 ML 2ML syringe ONE (10:37)
[2023-06-18] MEDS ORDERED: iohexol 350 MG/ML 50ML vial IV ONE ×3 (10:37→13:20)
[2023-06-18] MEDS ORDERED: ceFAZolin 1000mg inj ONE (10:38)
[2023-06-18] MEDS ORDERED: diphenhydrAMINE 50 mg/ml inj ONE (12:04)
[2023-06-18] MEDS ORDERED: HYDROmorphone 1 mg/ml syringe ONE (12:23)
[2023-06-18] MEDS ORDERED: iohexol 350MG/ML 100ml bottle IV ONE (13:33)
[2023-06-18] MEDS ORDERED: HYDROcodone/acetaminophen 5mg/325mg tablet PO PRN (15:35)
[2023-06-18] MEDS ORDERED: HYDROcodone/acetaminophen 10/325mg tab PO PRN (15:35)
[2023-06-18] MEDS: vancomycin/NS 1 GM ADD-VANTAGE 250 ML X 1 DOSE IV ONE (16:20)
[2023-06-18] MEDS ORDERED: acetylcysteine 200 MG/ml 4ml vial PO ONE (18:00)
== END 2023-06-18 19:30 | disposition home or self-care (01) ==
LOC: SSTAY O 08:52
PROVIDERS: ATTEND Internal Medicine Cardiovascular Disease
DX: I42.0 Dilated cardiomyopathy (principal); I11.0 Hypertensive heart disease with heart failure; I50.22 Chronic systolic (congestive) heart failure; I48.0 Paroxysmal atrial fibrillation; I87.2 Venous insufficiency (chronic) (peripheral); I25.10 Atherosclerotic heart disease of native coronary artery without angina pectoris; I44.2 Atrioventricular block, complete; G47.30 Sleep apnea, unspecified; I27.20 Pulmonary hypertension, unspecified; I08.3 Combined rheumatic disorders of mitral, aortic and tricuspid valves; Z95.1 Presence of aortocoronary bypass graft; Z95.5 Presence of coronary angioplasty implant and graft; Z79.899 Other long term (current) drug therapy; Z87.891 Personal history of nicotine dependence
CPT/HCPCS: 33225; 33233; 33249; 36415; 71046; 80048; 85025; 85610; 85730; 93005; 99152; 99153; C1769; C1777; C1882; C1900; J0690; J1170; J1200; J2250; J3010; J3370; J3490; J7030; J7040; J7070; Q9967; 33216; 33231; 33235; A4565; A6258; A6449

== ENCOUNTER 2023-10-11 06:57 | Day surgery (SDC) | payer MEDICARE, OTHER ==
[2023-10-10 11:20] LABS: BASOPHILS # (AUTO) 0.1 X10'3 (0-0.2); BASOPHILS % (AUTO) 1.4 % (0-1); EOSINOPHILS # (AUTO) 0.3 X10'3 (0-0.9); EOSINOPHILS % (AUTO) 3.1 % (0-6); HEMATOCRIT 40.9 % (42.0-52.0); HEMOGLOBIN 13.4 g/dl (14.0-17.9); LYMPHOCYTES # (AUTO) 1.1 X10'3 (1.1-4.8); LYMPHOCYTES % (AUTO) 12.5 % (21-51); MEAN CORPUSCULAR HEMOGLOBIN 28.2 PG (27.0-31.0); MEAN CORPUSCULAR HGB CONC 32.8 g/dL (33.0-36.5); MEAN CORPUSCULAR VOLUME 85.8 FL (78-98); MEAN PLATELET VOLUME 7.2 FL (7.4-10.4); MONOCYTES # (AUTO) 1.2 X10'3 (0-0.9); MONOCYTES % (AUTO) 12.9 % (2-12); NEUTROPHILS # (AUTO) 6.3 X10'3 (1.8-7.7); NEUTROPHILS % (AUTO) 70.1 % (42-75); PLATELET COUNT 294 X10'3 (140-440); RED BLOOD COUNT 4.77 X10'6 (4.70-6.10); RED CELL DISTRIBUTION WIDTH 17.3 % (11.5-14.5)
[2023-10-10 11:30] LABS: ALBUMIN 3.8 G/DL (3.4-5.0); ANION GAP 9 (8-16); BLOOD UREA NITROGEN 39 MG/DL (7-18); BUN/CREATININE RATIO 28.5 (10.0-20.0); CHLORIDE 93 MMOL/L (99-107); CREATININE 1.37 MG/DL (0.60-1.10); GLUCOSE 137 MG/DL (70-104); POTASSIUM 3.8 MMOL/L (3.5-5.1); SODIUM 133 MMOL/L (135-145); TOTAL CARBON DIOXIDE 31.4 MMOL/L (24-32); eGFR 51 ML/MIN
[2023-10-11] VITALS (16 sets, daily range): BP systolic 89–113; BP diastolic 51–78; PULSE 70–99; RESP 9–20; TEMP 97.9; O2SAT 92–98
[~2023-10-11] VITALS: Ht 185.4 cm; Wt 118.2 kg
[~2023-10-11 06:57] MED LIST changes: +FURO-150 PO; -FURO20TA4 PO; +WARF-65 PO; +WARF4TAB69 PO; -WARF4TAB9 PO
[2023-10-11] MEDS: LORazepam 0.5 MG tablet PO ONE (07:25)
[2023-10-11] MEDS: amiodarone 150mg/dext, iso-os 100 ML IV ONE (07:25)
[2023-10-11] MEDS: diphenhydrAMINE 25mg capsule PO ONE (07:25)
[2023-10-11] MEDS: atropine 0.1mg/ml 10ml syringe IV ONE (08:00)
[2023-10-11] MEDS: morphine 10mg/ml inj. IV ONE (09:54)
[2023-10-11] MEDS: normal saline 1000ml 1,000 ML IV SCH (09:55)
[2023-10-11] MEDS: MIDAZolam 1mg/ml 10ml vial IV ONE (09:55)
[2023-10-11] MEDS: furosemide 20 MG/2 ML vial IV ONE (10:44)
[2023-10-11] MEDS: potassium Cl 20 mEq SR tablet PO ONE ×2 (10:44→10:54)
== END 2023-10-11 11:53 | disposition home or self-care (01) ==
LOC: SSTAY O 06:57
PROVIDERS: ATTEND Internal Medicine Cardiovascular Disease
DX: I48.92 Unspecified atrial flutter (principal); I48.91 Unspecified atrial fibrillation
CPT/HCPCS: 36415; 80048; 85025; 85610; 92960; 93005; J1940; J2250; J2274; J7030

== ENCOUNTER 2024-01-02 10:13 | Emergency (ER) | payer MEDICARE, OTHER ==
[~2024-01-02] VITALS: Ht 185.4 cm; Wt 121.5 kg
[~2024-01-02 10:13] MED LIST changes: -ISOS60TA71 PO
[2024-01-02 10:18] VITALS: TEMP 97.7
[2024-01-02 10:34] LABS: BASOPHILS % (AUTO) 0.4 % (0-1); EOSINOPHILS # (AUTO) 0.4 X10'3 (0-0.9); EOSINOPHILS % (AUTO) 4.8 % (0-6); HEMATOCRIT 39.1 % (42.0-52.0); HEMOGLOBIN 12.5 g/dl (14.0-17.9); LYMPHOCYTES % (AUTO) 10.2 % (21-51); MEAN CORPUSCULAR HGB CONC 31.9 g/dL (33.0-36.5); MEAN CORPUSCULAR VOLUME 87.8 FL (78-98); MEAN PLATELET VOLUME 7.1 FL (7.4-10.4); MONOCYTES # (AUTO) 0.9 X10'3 (0-0.9); MONOCYTES % (AUTO) 9.5 % (2-12); NEUTROPHILS # (AUTO) 7.1 X10'3 (1.8-7.7); NEUTROPHILS % (AUTO) 75.1 % (42-75); PLATELET COUNT 268 X10'3 (140-440); RED BLOOD COUNT 4.45 X10'6 (4.70-6.10); RED CELL DISTRIBUTION WIDTH 18.4 % (11.5-14.5); WHITE BLOOD COUNT 9.4 X10'3 (4.5-11.0)
[2024-01-02 10:57] LABS: ALANINE AMINOTRANSFERASE 53 U/L (12-78); ALBUMIN 3.3 G/DL (3.4-5.0); ALBUMIN/GLOBULIN RATIO 0.7 (1.1-1.5); ALKALINE PHOSPHATASE 46 IU/L (46-116); ANION GAP 14 (8-16); ASPARTATE AMINO TRANSFERASE 35 U/L (10-37); BILIRUBIN,TOTAL 0.7 MG/DL (0.1-1.0); BLOOD UREA NITROGEN 48 MG/DL (7-18); BUN/CREATININE RATIO 33.3 (10.0-20.0); CALCIUM 9.2 MG/DL (8.5-10.1); CHLORIDE 89 MMOL/L (99-107); CREATININE 1.44 MG/DL (0.60-1.10); GLUCOSE 163 MG/DL (70-104); POTASSIUM 3.4 MMOL/L (3.5-5.1); SODIUM 129 MMOL/L (135-145); TOTAL CARBON DIOXIDE 26.2 MMOL/L (24-32); TOTAL PROTEIN 8.1 G/DL (6.4-8.2); eCRCL 52 ML/MIN; eGFR 48 ML/MIN
[2024-01-02 11:05] LABS: PRO BRAIN NATRIURETIC PEPTIDE 6077 PG/ML (0-125)
[2024-01-02] MEDS: furosemide 10 MG/1 ML 10ml inj IV ONE (12:12)
[2024-01-02] MEDS: potassium Cl 20 mEq SR tablet PO ONE (12:13)
[2024-01-02] MEDS: ipratropium/albuterol 3ml nebule NEB ONE (12:32)
[2024-01-02 12:37] VITALS: PULSE 80; RESP 15; O2SAT 97
[2024-01-02 12:40] VITALS: PULSE 80; RESP 15; O2SAT 99
[2024-01-02 13:00] VITALS: BP 109/72; PULSE 82; RESP 18
== END 2024-01-02 13:53 | disposition home or self-care (01) ==
LOC: ER 10:14
DX: R60.0 Localized edema (principal); I11.0 Hypertensive heart disease with heart failure; I50.9 Heart failure, unspecified; I48.91 Unspecified atrial fibrillation; E78.00 Pure hypercholesterolemia, unspecified; G47.39 Other sleep apnea; Z79.899 Other long term (current) drug therapy; Z79.82 Long term (current) use of aspirin; Z79.01 Long term (current) use of anticoagulants; Z95.1 Presence of aortocoronary bypass graft; Z95.0 Presence of cardiac pacemaker
CPT/HCPCS: 36415; 71045; 80053; 83880; 84484; 85025; 93005; 94640; 96374; 99285; J1940; Z7610; 94760

== ENCOUNTER 2024-01-08 09:59 | Emergency (ER) | payer MEDICARE, OTHER ==
[~2024-01-08] VITALS: Ht 185.4 cm; Wt 115.9 kg
[2024-01-08 10:17] VITALS: TEMP 96
[2024-01-08 10:25] LABS: BASOPHILS # (AUTO) 0.1 X10'3 (0-0.2); BASOPHILS % (AUTO) 1.4 % (0-1); EOSINOPHILS # (AUTO) 0.8 X10'3 (0-0.9); EOSINOPHILS % (AUTO) 8.3 % (0-6); HEMATOCRIT 42.9 % (42.0-52.0); LYMPHOCYTES # (AUTO) 1.1 X10'3 (1.1-4.8); LYMPHOCYTES % (AUTO) 11.5 % (21-51); MEAN CORPUSCULAR HEMOGLOBIN 28.3 PG (27.0-31.0); MEAN CORPUSCULAR HGB CONC 32.6 g/dL (33.0-36.5); MEAN CORPUSCULAR VOLUME 86.9 FL (78-98); MEAN PLATELET VOLUME 6.9 FL (7.4-10.4); MONOCYTES # (AUTO) 1.1 X10'3 (0-0.9); NEUTROPHILS # (AUTO) 6.5 X10'3 (1.8-7.7); NEUTROPHILS % (AUTO) 67.8 % (42-75); PLATELET COUNT 361 X10'3 (140-440); RED BLOOD COUNT 4.93 X10'6 (4.70-6.10); RED CELL DISTRIBUTION WIDTH 17.8 % (11.5-14.5); WHITE BLOOD COUNT 9.6 X10'3 (4.5-11.0)
[2024-01-08 10:36] LABS: ALANINE AMINOTRANSFERASE 38 U/L (12-78); ALBUMIN 3.7 G/DL (3.4-5.0); ALBUMIN/GLOBULIN RATIO 0.7 (1.1-1.5); ALKALINE PHOSPHATASE 50 IU/L (46-116); ANION GAP 13 (8-16); ASPARTATE AMINO TRANSFERASE 25 U/L (10-37); BILIRUBIN,TOTAL 0.7 MG/DL (0.1-1.0); BLOOD UREA NITROGEN 62 MG/DL (7-18); BUN/CREATININE RATIO 40.5 (10.0-20.0); CALCIUM 9.6 MG/DL (8.5-10.1); CHLORIDE 88 MMOL/L (99-107); CREATININE 1.53 MG/DL (0.60-1.10); GLUCOSE 167 MG/DL (70-104); POTASSIUM 3.4 MMOL/L (3.5-5.1); SODIUM 131 MMOL/L (135-145); TOTAL CARBON DIOXIDE 30.3 MMOL/L (24-32); TOTAL PROTEIN 8.8 G/DL (6.4-8.2); eCRCL 49 ML/MIN; eGFR 45 ML/MIN
[2024-01-08 10:43] LABS: PRO BRAIN NATRIURETIC PEPTIDE 3589 PG/ML (0-125)
[2024-01-08] MEDS: furosemide 10 MG/1 ML 10ml inj IV ONE (11:12)
[2024-01-08] MEDS ORDERED: FURO-150 PO (11:54)
[2024-01-08 11:57] VITALS: BP 106/70; PULSE 80; RESP 18; O2SAT 96
== END 2024-01-08 12:10 | disposition home or self-care (01) ==
LOC: ER 10:00
DX: I11.0 Hypertensive heart disease with heart failure (principal); I50.33 Acute on chronic diastolic (congestive) heart failure; I48.91 Unspecified atrial fibrillation; E78.00 Pure hypercholesterolemia, unspecified; G47.30 Sleep apnea, unspecified; Z79.899 Other long term (current) drug therapy; Z79.82 Long term (current) use of aspirin; Z95.1 Presence of aortocoronary bypass graft; Z95.0 Presence of cardiac pacemaker
CPT/HCPCS: 36415; 71045; 80053; 83880; 84484; 85025; 93005; 96374; 99285; J1940

== ENCOUNTER 2024-01-12 14:54 | Emergency (ER) | payer MEDICARE, OTHER ==
[~2024-01-12] VITALS: Ht 185.4 cm; Wt 115.9 kg
[2024-01-12 15:03] VITALS: TEMP 98.1
[2024-01-12] MEDS: furosemide 10 MG/1 ML 10ml inj IV ONE (15:35)
[2024-01-12] MEDS ORDERED: SULF1TAB45 PO (15:45)
[2024-01-12 15:54] LABS: BASOPHILS # (AUTO) 0.1 X10'3 (0-0.2); BASOPHILS % (AUTO) 1.2 % (0-1); EOSINOPHILS # (AUTO) 0.6 X10'3 (0-0.9); EOSINOPHILS % (AUTO) 5.6 % (0-6); HEMATOCRIT 40.7 % (42.0-52.0); HEMOGLOBIN 13.5 g/dl (14.0-17.9); LYMPHOCYTES # (AUTO) 1.2 X10'3 (1.1-4.8); LYMPHOCYTES % (AUTO) 10.9 % (21-51); MEAN CORPUSCULAR HEMOGLOBIN 28.6 PG (27.0-31.0); MEAN CORPUSCULAR HGB CONC 33.2 g/dL (33.0-36.5); MEAN CORPUSCULAR VOLUME 86.3 FL (78-98); MEAN PLATELET VOLUME 6.8 FL (7.4-10.4); MONOCYTES # (AUTO) 1.5 X10'3 (0-0.9); MONOCYTES % (AUTO) 13.3 % (2-12); NEUTROPHILS # (AUTO) 7.8 X10'3 (1.8-7.7); PLATELET COUNT 359 X10'3 (140-440); RED BLOOD COUNT 4.71 X10'6 (4.70-6.10); WHITE BLOOD COUNT 11.2 X10'3 (4.5-11.0)
[2024-01-12 16:00] LABS: ALANINE AMINOTRANSFERASE 48 U/L (12-78); ALBUMIN 3.8 G/DL (3.4-5.0); ALBUMIN/GLOBULIN RATIO 0.8 (1.1-1.5); ALKALINE PHOSPHATASE 48 IU/L (46-116); ANION GAP 9 (8-16); ASPARTATE AMINO TRANSFERASE 36 U/L (10-37); BILIRUBIN,TOTAL 0.8 MG/DL (0.1-1.0); BLOOD UREA NITROGEN 46 MG/DL (7-18); CALCIUM 9.4 MG/DL (8.5-10.1); CHLORIDE 90 MMOL/L (99-107); CREATININE 1.21 MG/DL (0.60-1.10); GLUCOSE 136 MG/DL (70-104); POTASSIUM 3.4 MMOL/L (3.5-5.1); SODIUM 131 MMOL/L (135-145); TOTAL CARBON DIOXIDE 32.1 MMOL/L (24-32); TOTAL PROTEIN 8.6 G/DL (6.4-8.2); eCRCL 62 ML/MIN; eGFR 59 ML/MIN
[2024-01-12 16:08] LABS: PRO BRAIN NATRIURETIC PEPTIDE 3469 PG/ML (0-125)
[2024-01-12] MEDS: potassium Cl 20 mEq SR tablet PO STA (16:36)
[2024-01-12 16:37] VITALS: BP 119/68; PULSE 80; RESP 14; O2SAT 95
[2024-01-12] MEDS ORDERED: POTA-208 PO (16:39)
== END 2024-01-12 17:04 | disposition home or self-care (01) ==
LOC: ER 14:55
DX: I11.0 Hypertensive heart disease with heart failure (principal); I50.9 Heart failure, unspecified; I48.91 Unspecified atrial fibrillation; E78.00 Pure hypercholesterolemia, unspecified; G47.39 Other sleep apnea; Z79.899 Other long term (current) drug therapy; Z79.82 Long term (current) use of aspirin; Z79.01 Long term (current) use of anticoagulants; Z95.1 Presence of aortocoronary bypass graft; Z95.0 Presence of cardiac pacemaker
CPT/HCPCS: 36415; 71045; 80053; 83880; 84484; 85025; 93005; 96374; 99285; J1940

== ENCOUNTER 2024-01-23 14:16 | Inpatient (IN) | payer MEDICARE, OTHER ==
[~2024-01-23] VITALS: Ht 190.5 cm; Wt 116.9 kg
[~2024-01-23 14:16] MED LIST changes: +POTA-208 PO
[2024-01-23 14:34] LABS: BASOPHILS # (AUTO) 0.1 X10'3 (0-0.2); EOSINOPHILS # (AUTO) 0.5 X10'3 (0-0.9); EOSINOPHILS % (AUTO) 5.9 % (0-6); HEMATOCRIT 42.3 % (42.0-52.0); HEMOGLOBIN 13.9 g/dl (14.0-17.9); LYMPHOCYTES # (AUTO) 1.1 X10'3 (1.1-4.8); LYMPHOCYTES % (AUTO) 11.7 % (21-51); MEAN CORPUSCULAR HEMOGLOBIN 28.3 PG (27.0-31.0); MEAN CORPUSCULAR HGB CONC 32.8 g/dL (33.0-36.5); MEAN CORPUSCULAR VOLUME 86.4 FL (78-98); MEAN PLATELET VOLUME 6.7 FL (7.4-10.4); NEUTROPHILS # (AUTO) 6.4 X10'3 (1.8-7.7); NEUTROPHILS % (AUTO) 70.4 % (42-75); PLATELET COUNT 293 X10'3 (140-440); RED CELL DISTRIBUTION WIDTH 17.8 % (11.5-14.5); WHITE BLOOD COUNT 9.1 X10'3 (4.5-11.0)
[2024-01-23 14:54] LABS: ALANINE AMINOTRANSFERASE 73 U/L (12-78); ALBUMIN 3.4 G/DL (3.4-5.0); ALBUMIN/GLOBULIN RATIO 0.7 (1.1-1.5); ALKALINE PHOSPHATASE 53 IU/L (46-116); ANION GAP 10 (8-16); ASPARTATE AMINO TRANSFERASE 41 U/L (10-37); BILIRUBIN,TOTAL 0.7 MG/DL (0.1-1.0); BLOOD UREA NITROGEN 44 MG/DL (7-18); BUN/CREATININE RATIO 32.1 (10.0-20.0); CALCIUM 9.3 MG/DL (8.5-10.1); CHLORIDE 90 MMOL/L (99-107); CREATININE 1.37 MG/DL (0.60-1.10); GLUCOSE 138 MG/DL (70-104); PRO BRAIN NATRIURETIC PEPTIDE 2516 PG/ML (0-125); SODIUM 132 MMOL/L (135-145); TOTAL CARBON DIOXIDE 32.1 MMOL/L (24-32); TOTAL PROTEIN 8.1 G/DL (6.4-8.2); eCRCL 51 ML/MIN; eGFR 51 ML/MIN
[2024-01-23 14:57] LABS: POTASSIUM 2.8 MMOL/L (3.5-5.1)
[2024-01-23] MEDS: magnesium oxide 400mg tablet PO ONE (15:34)
[2024-01-23] MEDS: potassium Cl 20 mEq SR tablet PO ONE ×2 (15:34→17:32)
[2024-01-23] MEDS: potassium CL 10mEq/100ml bag 100 ML IV ONE (15:34)
[2024-01-23] MEDS ORDERED: LIDOcaine 1% W/epiNEPHrine 1:100,000 20ml vial IJ ONE (15:50)
[2024-01-23] MEDS: LIDOcaine 1% 30ml preserv. free vial IJ ONE (16:11)
[2024-01-23] MEDS ORDERED: furosemide 10 MG/1 ML 10ml inj IV ONE (16:15)
[2024-01-23] MEDS: furosemide 10 MG/1 ML 10ml inj IV ONE (17:05)
[2024-01-24] MEDS: furosemide 10 MG/1 ML 10ml inj IV ONE (13:36)
[2024-01-25 10:04] LABS: BASOPHILS # (AUTO) 0.1 X10'3 (0-0.2); BASOPHILS % (AUTO) 1.4 % (0-1); EOSINOPHILS # (AUTO) 0.7 X10'3 (0-0.9); EOSINOPHILS % (AUTO) 8.3 % (0-6); HEMATOCRIT 42.7 % (42.0-52.0); LYMPHOCYTES # (AUTO) 1.2 X10'3 (1.1-4.8); LYMPHOCYTES % (AUTO) 13.9 % (21-51); MEAN CORPUSCULAR HEMOGLOBIN 28.3 PG (27.0-31.0); MEAN CORPUSCULAR HGB CONC 32.7 g/dL (33.0-36.5); MEAN CORPUSCULAR VOLUME 86.5 FL (78-98); MEAN PLATELET VOLUME 7.1 FL (7.4-10.4); MONOCYTES # (AUTO) 0.9 X10'3 (0-0.9); MONOCYTES % (AUTO) 11.1 % (2-12); NEUTROPHILS # (AUTO) 5.4 X10'3 (1.8-7.7); NEUTROPHILS % (AUTO) 65.3 % (42-75); PLATELET COUNT 265 X10'3 (140-440); RED BLOOD COUNT 4.94 X10'6 (4.70-6.10); WHITE BLOOD COUNT 8.3 X10'3 (4.5-11.0)
[2024-01-25 10:20] LABS: ALANINE AMINOTRANSFERASE 63 U/L (12-78); ALBUMIN 3.4 G/DL (3.4-5.0); ALBUMIN/GLOBULIN RATIO 0.7 (1.1-1.5); ALKALINE PHOSPHATASE 54 IU/L (46-116); ANION GAP 3 (8-16); ASPARTATE AMINO TRANSFERASE 42 U/L (10-37); BILIRUBIN,TOTAL 0.9 MG/DL (0.1-1.0); BLOOD UREA NITROGEN 48 MG/DL (7-18); BUN/CREATININE RATIO 39.3 (10.0-20.0); CALCIUM 9.6 MG/DL (8.5-10.1); CHLORIDE 92 MMOL/L (99-107); CREATININE 1.22 MG/DL (0.60-1.10); GLUCOSE 122 MG/DL (70-104); POTASSIUM 3.2 MMOL/L (3.5-5.1); SODIUM 132 MMOL/L (135-145); TOTAL CARBON DIOXIDE 36.8 MMOL/L (24-32); TOTAL PROTEIN 8.1 G/DL (6.4-8.2); eCRCL 57 ML/MIN; eGFR 58 ML/MIN
[2024-01-25] MEDS ORDERED: magnesium sulf-water 4G/100mL 100 ML IV PRN (14:20)
[2024-01-25] MEDS ORDERED: magnesium hydroxide 30ml (MOM) UD suspension PO PRN (14:20)
[2024-01-25] MEDS ORDERED: acetaminophen 325mg tablet PO PRN (14:20)
[2024-01-25] MEDS ORDERED: magnesium sulf-water 2g/50mL 50 ML IV PRN (14:20)
[2024-01-25] MEDS ORDERED: mag hydrox/Alum hydrox/simeth 30ml oral suspension PO PRN (14:20)
[2024-01-25] MEDS ORDERED: ondansetron/PF 4mg/2ml inj IV PRN (14:20)
[2024-01-25 15:21] LABS: INR 2.4 INR; PROTHROMBIN TIME 23.4 SECONDS (9.0-12.0)
[2024-01-25] MEDS: potassium Cl 20 mEq SR tablet PO PRN (16:21)
[2024-01-25 18:17] VITALS: BP 118/68; PULSE 83; RESP 13; TEMP 98.8; O2SAT 97
[2024-01-25] MEDS: docusate sod 100mg capsule PO SCH (20:00)
[2024-01-25] MEDS: K and/or MAG REPLACEMENT MC SCH (20:00)
[2024-01-25] MEDS: gemfibrozil 600mg tablet PO SCH (20:00)
[2024-01-25] MEDS: furosemide 40mg/4ml inj IV SCH (20:00)
[2024-01-25] MEDS: carvedilol 6.25mg tablet PO SCH (20:55)
[2024-01-25] MEDS: atorvastatin 20mg tablet PO SCH (21:00)
[2024-01-25] MEDS: warfarin 1mg tablet PO ONE (21:00)
[2024-01-25 22:00] VITALS: BP 121/55; PULSE 85; RESP 14; TEMP 97.2; O2SAT 97
[2024-01-26 02:00] VITALS: BP 106/66; PULSE 81; RESP 21; TEMP 96.6; O2SAT 98
[2024-01-26 06:18] LABS: INR 2.4 INR; PROTHROMBIN TIME 23.8 SECONDS (9.0-12.0)
[2024-01-26 06:21] LABS: BASOPHILS # (AUTO) 0.1 X10'3 (0-0.2); BASOPHILS % (AUTO) 1.3 % (0-1); EOSINOPHILS # (AUTO) 0.6 X10'3 (0-0.9); EOSINOPHILS % (AUTO) 8.3 % (0-6); HEMATOCRIT 40.5 % (42.0-52.0); HEMOGLOBIN 13.1 g/dl (14.0-17.9); LYMPHOCYTES # (AUTO) 0.8 X10'3 (1.1-4.8); LYMPHOCYTES % (AUTO) 10.8 % (21-51); MEAN CORPUSCULAR HGB CONC 32.3 g/dL (33.0-36.5); MEAN CORPUSCULAR VOLUME 86.7 FL (78-98); MEAN PLATELET VOLUME 7.2 FL (7.4-10.4); MONOCYTES # (AUTO) 0.7 X10'3 (0-0.9); MONOCYTES % (AUTO) 9.8 % (2-12); NEUTROPHILS # (AUTO) 5.3 X10'3 (1.8-7.7); NEUTROPHILS % (AUTO) 69.8 % (42-75); PLATELET COUNT 238 X10'3 (140-440); RED BLOOD COUNT 4.67 X10'6 (4.70-6.10); RED CELL DISTRIBUTION WIDTH 17.5 % (11.5-14.5); WHITE BLOOD COUNT 7.6 X10'3 (4.5-11.0)
[2024-01-26 06:29] LABS: ALANINE AMINOTRANSFERASE 57 U/L (12-78); ALBUMIN 3.1 G/DL (3.4-5.0); ALBUMIN/GLOBULIN RATIO 0.7 (1.1-1.5); ALKALINE PHOSPHATASE 47 IU/L (46-116); ANION GAP 8 (8-16); ASPARTATE AMINO TRANSFERASE 38 U/L (10-37); BILIRUBIN,TOTAL 0.7 MG/DL (0.1-1.0); BLOOD UREA NITROGEN 56 MG/DL (7-18); BUN/CREATININE RATIO 39.7 (10.0-20.0); CALCIUM 9.3 MG/DL (8.5-10.1); CHLORIDE 92 MMOL/L (99-107); CREATININE 1.41 MG/DL (0.60-1.10); GLUCOSE 158 MG/DL (70-104); MAGNESIUM 2.1 MG/DL (1.5-2.4); SODIUM 135 MMOL/L (135-145); TOTAL PROTEIN 7.4 G/DL (6.4-8.2); eCRCL 50 ML/MIN; eGFR 49 ML/MIN
[2024-01-26 06:34] LABS: POTASSIUM 2.5 MMOL/L (3.5-5.1)
[2024-01-26] MEDS: OMEGA-3/DHA/EPA/FISH OIL 1 EACH CAPSULE.DR PO SCH (07:11)
[2024-01-26] MEDS: DAPAGLIFLOZIN 10MG TABLET PO SCH (07:11)
[2024-01-26] MEDS: metolazone 2.5mg tablet PO SCH (07:11)
[2024-01-26] MEDS: spironolactone 25 MG tablet PO SCH (07:12)
[2024-01-26] MEDS: amiodarone 200mg tablet PO SCH (07:12)
[2024-01-26] MEDS: clopidogrel 75mg tablet PO SCH (07:12)
[2024-01-26] MEDS: potassium Cl 20 mEq SR tablet PO PRN (07:12)
[2024-01-26] MEDS: magnesium oxide 400mg tablet PO SCH (07:12)
[2024-01-26] MEDS: ascorbic acid 500mg tablet PO SCH (07:13)
[2024-01-26] MEDS: potassium Cl 40MEQ/1/2NS 520ml 520 ML IV PRN (07:13)
[2024-01-26 08:00] VITALS: RESP 18; O2SAT 100
[2024-01-26] MEDS ORDERED: non-formulary drug (Ubidecarenone (Coq-10) 100 MG) PO SCH (08:00)
[2024-01-26 09:23] VITALS: BP 115/70; PULSE 87; RESP 18; TEMP 97.1; O2SAT 100
[2024-01-27] MEDS ORDERED: aspirin 81mg, enteric-coated 1 TAB TABLET.DR PO SCH (08:00)
== END 2024-01-26 10:01 | disposition critical access hospital (66) | DRG 291 ==
LOC: ER 14:16 → ED HOLD 01-25 14:22 → PCU 3S 01-25 17:13
PROVIDERS: ADMIT Family Medicine; ATTEND Family Medicine
DX: I13.0 Hypertensive heart and chronic kidney disease with heart failure and stage 1 through stage 4 chronic kidney disease, or unspecified chronic kidney disease (principal); I50.23 Acute on chronic systolic (congestive) heart failure; I48.20 Chronic atrial fibrillation, unspecified; N17.9 Acute kidney failure, unspecified; E78.00 Pure hypercholesterolemia, unspecified; N18.9 Chronic kidney disease, unspecified; I25.10 Atherosclerotic heart disease of native coronary artery without angina pectoris; G47.33 Obstructive sleep apnea (adult) (pediatric); E87.6 Hypokalemia; I42.0 Dilated cardiomyopathy; E78.5 Hyperlipidemia, unspecified; Z96.653 Presence of artificial knee joint, bilateral; I25.5 Ischemic cardiomyopathy; Z79.82 Long term (current) use of aspirin; Z79.899 Other long term (current) drug therapy; Z79.01 Long term (current) use of anticoagulants; Z95.1 Presence of aortocoronary bypass graft; Z99.81 Dependence on supplemental oxygen
CPT/HCPCS: 36415; 71045; 80053; 83735; 83880; 84484; 85025; 85610; 87081; 93005; 93308; 96365; 96366; 96375; 96376; 99291; G0378; J1940; J3480; J7030